=== PATIENT | male | born 1970 | race Caucasian/White ===

== ENCOUNTER → 2016-04-28 | Outpatient (CLI) | payer BC, OTHER ==
--- NOTE | 2016-04-28 16:32 | REP ---
ABDOMINAL AORTIC SONOGRAPHY: HISTORY: History of pulsatile abdominal mass, question abdominal aortic aneurysm. FINDINGS: Abdominal aorta is 2.5 x 2.3 cm in transverse x AP dimension respectively at the diaphragmatic hiatus. This tapers distally without aneurysm with distal aortic dimensions of 1.7 AP x 2.0 cm transverse. The right and left common iliac arteries are normal measuring 1.2 cm in AP dimension on each side. No periaortic disease is seen. IMPRESSION: No evidence of abdominal aortic aneurysm seen. Signed by Cristobal Vera MD 04/28/2016 06:01 P
== END ==
LOC: M RAD 07:38
PROVIDERS: ATTEND Family Medicine
DX: Z87.898 Personal history of other specified conditions (principal)

== ENCOUNTER → 2016-06-16 | Outpatient (REF) | payer BC, OTHER ==
[~2016-06-16] MED LIST: LEVO200T4 PO; MECL-86 PO
[2016-06-16 12:55] LABS: MEAN CORPUSCULAR HEMOGLOBIN 30.1 pg (27.0-33.0); MEAN CORPUSCULAR HGB CONC 34.3 g/dl (32.0-36.5); MEAN CORPUSCULAR VOLUME 87.6 fl (80.0-96.0); RED CELL DISTRIBUTION WIDTH 13.3 % (11.5-14.5); WHITE BLOOD COUNT 5.3 K/mm3 (4.0-10.0)
[2016-06-16 13:10] LABS: ALBUMIN 4.1 GM/DL (3.2-5.2); ALBUMIN/GLOBULIN RATIO 1.32 (1.00-1.93); ALKALINE PHOSPHATASE 66 U/L (45-117); ALT/SGPT 33 U/L (12-78); ANION GAP 9 MEQ/L (8-16); AST/SGOT 17 U/L (15-37); BILIRUBIN,TOTAL 0.6 MG/DL (0.2-1.0); BLOOD UREA NITROGEN 19 MG/DL (7-18); CARBON DIOXIDE LEVEL 28 MEQ/L (21-32); CHLORIDE LEVEL 107 MEQ/L (98-107); CHOLESTEROL LEVEL 221 MG/DL (<200); CREATININE FOR GFR 1.16 MG/DL (0.70-1.30); GLOMERULAR FILTRATION RATE > 60.0 (>60); GLUCOSE, FASTING 100 MG/DL (70-105); SODIUM LEVEL 144 MEQ/L (136-145); TOTAL PROTEIN 7.2 GM/DL (6.4-8.2); TRIGLYCERIDES LEVEL 198 MG/DL (<150)
== END ==
LOC: M LABDRWAD 12:14
PROVIDERS: ATTEND Family Medicine
DX: E03.9 Hypothyroidism, unspecified (principal); R53.83 Other fatigue

== ENCOUNTER → 2016-06-23 | Day surgery (SDC) | payer BC, OTHER ==
[~2016-06-23] VITALS: Ht 188 cm; Wt 127.0 kg
[~2016-06-23] MED LIST changes: +ACETAMINOPHEN 325 MG TAB PO PRN; +AcetaZOLAMIDE 500 MG ER CAP PO ONE; +BSS with VANC/TOB/EPI for EYE CASES IR ONE; +CYCLOPENTOLATE 2% OPHTH SOLN OD ONE; +D5W/0.2% SODIUM CHLORIDE 250 ML IV SCH; +HEALON DUET (HEALON 10MG/ML 0.55ML & HEALON ENDOCOAT 30MG/ML 0.85ML) As Ordered ONE; +HEALON DUET (HEALON 10MG/ML 0.55ML & HEALON ENDOCOAT 30MG/ML 0.85ML) XX ONE; +KETOROLAC 0.5% OPHTH SOLN OD ONE; +LIDOCAINE 1% SDV 5 ML VIAL As Ordered ONE; +LIDOCAINE 1% SDV 5 ML VIAL XX ONE; +LIDOCAINE 4% INJ 5 ML AMP OU ONE; +LIDOCAINE W/EPINEPHRINE 1% 20ML VIAL XX ONE; +MIDAZOLAM INJ 2 MG/2 ML VIAL (J2250) As Ordered ONE; +MOXIFLOXACIN IN BSS 0.25MG/0.25ML INTRACAMERAL INJ (OR EYE ONLY)(J2280) As Ordered ONE; +MOXIFLOXACIN IN BSS 0.25MG/0.25ML INTRACAMERAL INJ (OR EYE ONLY)(J2280) ICAM ONE; +OFLOXACIN 0.3 % (OCUFLOX) OPTH SOL 5ML OD ONE; +PHENYLEPHRINE 2.5% OPHTH SOL 2ML OD ONE; +POVIDONE-IODINE 5% OPHTH PREP SOL 30ML As Ordered ONE; +PROPARACAINE 0.5% OPHTH SOL 15ML OD PRN; +TRIAMCINOLONE PRES FR 40 MG/ML 1ML(TRIESENCE)(OR EYE ONLY)(J3300 PER 1MG) As Ordered ONE; +TRIAMCINOLONE PRES FR 40 MG/ML 1ML(TRIESENCE)(OR EYE ONLY)(J3300 PER 1MG) IO ONE; +TRIMETHOBENZAMIDE 300 MG CAP PO PRN; +TROPICAMIDE 1% OPHTH SOLN 2 ML OD ONE; +fentaNYL 100 MCG/2 ML INJECTION (J3010) As Ordered ONE
[2016-06-23 11:20] VITALS: BP 122/84
== END ==
LOC: M SDC 07:44
PROVIDERS: ATTEND Ophthalmology
DX: H26.9 Unspecified cataract (principal); I10 Essential (primary) hypertension; E03.9 Hypothyroidism, unspecified; M19.90 Unspecified osteoarthritis, unspecified site; G47.30 Sleep apnea, unspecified; Z88.0 Allergy status to penicillin; Z79.899 Other long term (current) drug therapy
CPT/HCPCS: 66984; J2250; J2280; J3010; J3300

== ENCOUNTER → 2016-06-30 | Day surgery (SDC) | payer BC, OTHER ==
[~2016-06-30] VITALS: Ht 188 cm; Wt 127.0 kg
[~2016-06-30] MED LIST changes: -CYCLOPENTOLATE 2% OPHTH SOLN OD ONE; +CYCLOPENTOLATE 2% OPHTH SOLN OS ONE; -HEALON DUET (HEALON 10MG/ML 0.55ML & HEALON ENDOCOAT 30MG/ML 0.85ML) XX ONE; -KETOROLAC 0.5% OPHTH SOLN OD ONE; +KETOROLAC 0.5% OPHTH SOLN OS ONE; -LIDOCAINE 1% SDV 5 ML VIAL XX ONE; +LIDOCAINE 4% INJ 5 ML AMP OS ONE; -LIDOCAINE W/EPINEPHRINE 1% 20ML VIAL XX ONE; -MOXIFLOXACIN IN BSS 0.25MG/0.25ML INTRACAMERAL INJ (OR EYE ONLY)(J2280) ICAM ONE; -OFLOXACIN 0.3 % (OCUFLOX) OPTH SOL 5ML OD ONE; +OFLOXACIN 0.3 % (OCUFLOX) OPTH SOL 5ML OS ONE; -PHENYLEPHRINE 2.5% OPHTH SOL 2ML OD ONE; +PHENYLEPHRINE 2.5% OPHTH SOL 2ML OS ONE; -PROPARACAINE 0.5% OPHTH SOL 15ML OD PRN; +PROPARACAINE 0.5% OPHTH SOL 15ML OS PRN; -TRIAMCINOLONE PRES FR 40 MG/ML 1ML(TRIESENCE)(OR EYE ONLY)(J3300 PER 1MG) IO ONE; -TROPICAMIDE 1% OPHTH SOLN 2 ML OD ONE; +TROPICAMIDE 1% OPHTH SOLN 2 ML OS ONE
[2016-06-30 12:05] VITALS: BP 137/86
== END ==
LOC: M SDC 09:01
PROVIDERS: ATTEND Ophthalmology
DX: H26.9 Unspecified cataract (principal); E03.9 Hypothyroidism, unspecified; M19.90 Unspecified osteoarthritis, unspecified site; G47.30 Sleep apnea, unspecified; E66.9 Obesity, unspecified; Z88.0 Allergy status to penicillin; Z79.899 Other long term (current) drug therapy
CPT/HCPCS: 66984; J2250; J2280; J3010; J3300

== ENCOUNTER → 2017-05-31 | Outpatient (CLI) | payer BC, OTHER ==
[2017-05-31 09:10] LABS: HEMATOCRIT 47.1 % (42.0-52.0); HEMOGLOBIN 15.8 g/dl (14.0-18.0); MEAN CORPUSCULAR HGB CONC 33.5 g/dl (32.0-36.5); MEAN CORPUSCULAR VOLUME 86.4 fl (80.0-96.0); PLATELET COUNT, AUTOMATED 178 10^3/uL (150-450); RED BLOOD COUNT 5.45 10^6/uL (4.30-6.10); WHITE BLOOD COUNT 5.8 10^3/uL (4.0-10.0)
[2017-05-31 09:46] LABS: ALBUMIN/GLOBULIN RATIO 1.14 (1.00-1.93); ALKALINE PHOSPHATASE 66 U/L (45-117); ALT/SGPT 33 U/L (12-78); ANION GAP 5 MEQ/L (8-16); AST/SGOT 15 U/L (7-37); BILIRUBIN,TOTAL 0.4 MG/DL (0.2-1.0); BLOOD UREA NITROGEN 15 MG/DL (7-18); CALCIUM LEVEL 9.1 MG/DL (8.5-10.1); CARBON DIOXIDE LEVEL 31 MEQ/L (21-32); CHLORIDE LEVEL 104 MEQ/L (98-107); CHOLESTEROL LEVEL 219 MG/DL (<200); CREATININE FOR GFR 1.12 MG/DL (0.70-1.30); GLOMERULAR FILTRATION RATE > 60.0 (>60); GLUCOSE, FASTING 94 MG/DL (70-100); HDL CHOLESTEROL 46 MG/DL (>40); NON-HDL-C 173 MG/DL; POTASSIUM SERUM 4.1 MEQ/L (3.5-5.1); PROSTATIC SPECIFIC AG MONITOR 0.74 NG/ML (< 4.0); SODIUM LEVEL 140 MEQ/L (136-145); TOTAL PROTEIN 7.5 GM/DL (6.4-8.2); TRIGLYCERIDES LEVEL 305 MG/DL (<150)
[2017-05-31 09:52] LABS: ESTIMATED AVERAGE GLUCOSE 123 MG/DL (60-110); HEMOGLOBIN A1c 5.9 %
[2017-05-31 10:03] LABS: TOTAL 25(OH) VITAMIN D 18.6 NG/ML (30.0-100.0)
[2017-05-31 10:04] LABS: TESTOSTERONE 238 NG/DL (241-827)
== END ==
LOC: M LAB 08:41
DX: E03.9 Hypothyroidism, unspecified (principal)
CPT/HCPCS: 71046

== ENCOUNTER → 2018-01-18 | Outpatient (REF) | payer OTHER ==
[2018-01-18 12:26] LABS: HEMATOCRIT 48.3 % (42.0-52.0); HEMOGLOBIN 16.3 g/dl (13.5-17.5); MEAN CORPUSCULAR HEMOGLOBIN 29.3 pg (27.0-33.0); MEAN CORPUSCULAR HGB CONC 33.7 g/dl (32.0-36.5); MEAN CORPUSCULAR VOLUME 86.9 fl (80.0-96.0); PLATELET COUNT, AUTOMATED 182 10^3/uL (150-450); RED BLOOD COUNT 5.56 10^6/uL (4.30-6.10); RED CELL DISTRIBUTION WIDTH 13.5 % (11.5-14.5); WHITE BLOOD COUNT 5.1 10^3/uL (4.0-10.0)
[2018-01-18 12:53] LABS: ERYTHROCYTE SEDIMENTATION RATE 3 mm/hr (0-15)
[2018-01-18 15:18] LABS: ALBUMIN 4.4 GM/DL (3.2-5.2); ALBUMIN/GLOBULIN RATIO 1.42 (1.00-1.93); ALKALINE PHOSPHATASE 62 U/L (45-117); ALT/SGPT 40 U/L (12-78); ANION GAP 11 MEQ/L (8-16); AST/SGOT 21 U/L (7-37); BILIRUBIN,TOTAL 0.6 MG/DL (0.2-1.0); BLOOD UREA NITROGEN 16 MG/DL (7-18); CALCIUM LEVEL 9.4 MG/DL (8.5-10.1); CARBON DIOXIDE LEVEL 26 MEQ/L (21-32); CHLORIDE LEVEL 104 MEQ/L (98-107); CHOLESTEROL LEVEL 237 MG/DL (<200); CHOLESTEROL RISK RATIO 5.266 (<5); CREATININE FOR GFR 1.15 MG/DL (0.70-1.30); GLOMERULAR FILTRATION RATE > 60.0 (>60); GLUCOSE, FASTING 93 MG/DL (70-100); HDL CHOLESTEROL 45 MG/DL (>40); LDL CHOLESTEROL 165 MG/DL (<100); NON-HDL-C 192 MG/DL; POTASSIUM SERUM 4.2 MEQ/L (3.5-5.1); SODIUM LEVEL 141 MEQ/L (136-145); TOTAL PROTEIN 7.5 GM/DL (6.4-8.2); TRIGLYCERIDES LEVEL 135 MG/DL (<150)
[2018-01-18 15:36] LABS: ESTIMATED AVERAGE GLUCOSE 114 MG/DL (60-110); HEMOGLOBIN A1c 5.6 %
[2018-01-18 17:43] LABS: TESTOSTERONE 314 NG/DL (241-827); TOTAL 25(OH) VITAMIN D 17.2 NG/ML (30.0-100.0)
[2018-01-18 18:23] LABS: HIV 1&2 SCREEN CENTAUR NEGATIVE (NEGATIVE)
== END ==
LOC: M LABDRWAD 12:05
DX: E03.9 Hypothyroidism, unspecified (principal); R53.83 Other fatigue

== ENCOUNTER → 2018-01-22 | Outpatient (CLI) | payer BC, OTHER | LOC: M EKG 13:07 | DX: I49.8 Other specified cardiac arrhythmias (principal) | CPT/HCPCS: 93005 ==

== ENCOUNTER 2018-03-18 10:37 | Emergency (ER) | payer OTHER, BC | END 2018-03-18 11:50 | disposition home or self-care (01) | LOC: M ED 10:37 | DX: M25.552 Pain in left hip (principal); E03.9 Hypothyroidism, unspecified; G47.33 Obstructive sleep apnea (adult) (pediatric); Z79.899 Other long term (current) drug therapy; Z88.0 Allergy status to penicillin | CPT/HCPCS: 73502 ==

== ENCOUNTER → 2018-11-02 | Outpatient (CLI) | payer BC, OTHER ==
[~2018-11-02] MED LIST changes: -ACETAMINOPHEN 325 MG TAB PO PRN; -AcetaZOLAMIDE 500 MG ER CAP PO ONE; -BSS with VANC/TOB/EPI for EYE CASES IR ONE; -CYCLOPENTOLATE 2% OPHTH SOLN OS ONE; -D5W/0.2% SODIUM CHLORIDE 250 ML IV SCH; -HEALON DUET (HEALON 10MG/ML 0.55ML & HEALON ENDOCOAT 30MG/ML 0.85ML) As Ordered ONE; +HYDR-3715 PO; -KETOROLAC 0.5% OPHTH SOLN OS ONE; +LEVO150T7; -LIDOCAINE 1% SDV 5 ML VIAL As Ordered ONE; -LIDOCAINE 4% INJ 5 ML AMP OS ONE; -LIDOCAINE 4% INJ 5 ML AMP OU ONE; -MIDAZOLAM INJ 2 MG/2 ML VIAL (J2250) As Ordered ONE; -MOXIFLOXACIN IN BSS 0.25MG/0.25ML INTRACAMERAL INJ (OR EYE ONLY)(J2280) As Ordered ONE; -OFLOXACIN 0.3 % (OCUFLOX) OPTH SOL 5ML OS ONE; -PHENYLEPHRINE 2.5% OPHTH SOL 2ML OS ONE; -POVIDONE-IODINE 5% OPHTH PREP SOL 30ML As Ordered ONE; -PROPARACAINE 0.5% OPHTH SOL 15ML OS PRN; -TRIAMCINOLONE PRES FR 40 MG/ML 1ML(TRIESENCE)(OR EYE ONLY)(J3300 PER 1MG) As Ordered ONE; -TRIMETHOBENZAMIDE 300 MG CAP PO PRN; -TROPICAMIDE 1% OPHTH SOLN 2 ML OS ONE; -fentaNYL 100 MCG/2 ML INJECTION (J3010) As Ordered ONE
[2018-11-02 09:12] LABS: HEMATOCRIT 44.7 % (42.0-52.0); HEMOGLOBIN 15.1 g/dl (13.5-17.5); MEAN CORPUSCULAR HEMOGLOBIN 30.8 pg (27.0-33.0); MEAN CORPUSCULAR HGB CONC 33.8 g/dl (32.0-36.5); PLATELET COUNT, AUTOMATED 178 10^3/uL (150-450); RED BLOOD COUNT 4.91 10^6/uL (4.30-6.10); WHITE BLOOD COUNT 5.5 10^3/uL (4.0-10.0)
[2018-11-02 09:39] LABS: ALT/SGPT 26 U/L (12-78); BILIRUBIN,TOTAL 0.5 MG/DL (0.2-1.0); BLOOD UREA NITROGEN 21 MG/DL (7-18); CALCIUM LEVEL 8.9 MG/DL (8.5-10.1); CARBON DIOXIDE LEVEL 29 MEQ/L (21-32); CHLORIDE LEVEL 108 MEQ/L (98-107); CHOLESTEROL LEVEL 198 MG/DL (<200); CREATININE FOR GFR 1.22 MG/DL (0.70-1.30); GLOMERULAR FILTRATION RATE > 60.0 (>60); GLUCOSE, FASTING 98 MG/DL (70-100); HDL CHOLESTEROL 50 MG/DL (>40); LDL CHOLESTEROL 126 MG/DL (<100); NON-HDL-C 148 MG/DL; POTASSIUM SERUM 4.3 MEQ/L (3.5-5.1); SODIUM LEVEL 142 MEQ/L (136-145); TOTAL PROTEIN 7.2 GM/DL (6.4-8.2); TRIGLYCERIDES LEVEL 112 MG/DL (<150)
[2018-11-02 10:00] LABS: TESTOSTERONE 357 NG/DL (241-827); TOTAL 25(OH) VITAMIN D 22.4 NG/ML (30.0-100.0)
== END ==
LOC: M LAB 08:42
PROVIDERS: ATTEND Family Medicine
DX: I10 Essential (primary) hypertension (principal); R53.83 Other fatigue; N40.0 Benign prostatic hyperplasia without lower urinary tract symptoms; E03.9 Hypothyroidism, unspecified

== ENCOUNTER → 2019-04-13 | Outpatient (REF) | payer OTHER ==
[2019-04-13 13:10] LABS: HEMATOCRIT 48.9 % (42.0-52.0); HEMOGLOBIN 15.7 g/dl (13.5-17.5); MEAN CORPUSCULAR HEMOGLOBIN 29.2 pg (27.0-33.0); MEAN CORPUSCULAR HGB CONC 32.1 g/dl (32.0-36.5); MEAN CORPUSCULAR VOLUME 91.1 fl (80.0-96.0); PLATELET COUNT, AUTOMATED 219 10^3/uL (150-450); RED BLOOD COUNT 5.37 10^6/uL (4.30-6.10)
[2019-04-13 13:30] LABS: HEMOGLOBIN A1c 5.4 %
[2019-04-13 14:03] LABS: ALT/SGPT 30 U/L (12-78); BILIRUBIN,TOTAL 0.7 MG/DL (0.2-1.0); BLOOD UREA NITROGEN 18 MG/DL (7-18); CALCIUM LEVEL 8.8 MG/DL (8.5-10.1); CARBON DIOXIDE LEVEL 29 MEQ/L (21-32); CHLORIDE LEVEL 106 MEQ/L (98-107); CHOLESTEROL LEVEL 217 MG/DL (<200); CHOLESTEROL RISK RATIO 4.094 (<5); CREATININE FOR GFR 1.23 MG/DL (0.70-1.30); GLOMERULAR FILTRATION RATE > 60.0 (>60); GLUCOSE, FASTING 94 MG/DL (70-100); HDL CHOLESTEROL 53 MG/DL (>40); LDL CHOLESTEROL 134 MG/DL (<100); NON-HDL-C 164 MG/DL; POTASSIUM SERUM 4.3 MEQ/L (3.5-5.1); PROSTATIC SPECIFIC AG MONITOR 0.88 NG/ML (< 4.00); SODIUM LEVEL 142 MEQ/L (136-145); TESTOSTERONE 362 NG/DL (241-827); THYROXINE (T4) 11.6 UG/DL (4.5-12.0); TOTAL PROTEIN 7.5 GM/DL (6.4-8.2); TOTAL T3 110.7 NG/DL (60.0-181.0); TRIGLYCERIDES LEVEL 150 MG/DL (<150)
[2019-04-13 14:12] LABS: HEPATITIS B SURFACE ANTIGEN NEGATIVE (NEGATIVE)
[2019-04-13 14:39] LABS: HEPATITIS C VIRUS ABY INDEX 0.3 INDEX (<0.8)
[2019-04-13 14:40] LABS: HEPATITIS B CORE ANTIBODY IGM NEGATIVE (NEGATIVE)
[2019-04-13 14:41] LABS: HEPATITIS A ANTIBODY IGM NEGATIVE (NEGATIVE)
== END ==
LOC: M LABDRWAD 12:32
PROVIDERS: ATTEND Family Medicine
DX: I10 Essential (primary) hypertension (principal); R53.83 Other fatigue; E03.9 Hypothyroidism, unspecified

== ENCOUNTER → 2019-11-12 | Outpatient (CLI) | payer BC, OTHER ==
[2019-11-12 11:02] LABS: HEMATOCRIT 44.3 % (42.0-52.0); HEMOGLOBIN 14.6 g/dl (13.5-17.5); MEAN CORPUSCULAR HEMOGLOBIN 29.4 pg (27.0-33.0); MEAN CORPUSCULAR VOLUME 89.1 fl (80.0-96.0); PLATELET COUNT, AUTOMATED 200 10^3/uL (150-450); RED BLOOD COUNT 4.97 10^6/uL (4.30-6.10); WHITE BLOOD COUNT 5.7 10^3/uL (4.0-10.0)
[2019-11-12 11:12] LABS: HEMOGLOBIN A1c 5.6 %
[2019-11-12 11:35] LABS: ALT/SGPT 30 U/L (12-78); BILIRUBIN,TOTAL 0.6 MG/DL (0.2-1.0); BLOOD UREA NITROGEN 17 MG/DL (7-18); CALCIUM LEVEL 8.7 MG/DL (8.5-10.1); CARBON DIOXIDE LEVEL 28 MEQ/L (21-32); CHLORIDE LEVEL 106 MEQ/L (98-107); CHOLESTEROL LEVEL 232 MG/DL (<200); CREATININE FOR GFR 1.17 MG/DL (0.70-1.30); GLOMERULAR FILTRATION RATE > 60.0 (>60); GLUCOSE, FASTING 93 MG/DL (70-100); HDL CHOLESTEROL 50 MG/DL (>40); LDL CHOLESTEROL 159 MG/DL (<100); NON-HDL-C 182 MG/DL; POTASSIUM SERUM 4.6 MEQ/L (3.5-5.1); PROSTATIC SPECIFIC AG MONITOR 0.96 NG/ML (< 4.00); SODIUM LEVEL 140 MEQ/L (136-145); TOTAL PROTEIN 7.3 GM/DL (6.4-8.2); TRIGLYCERIDES LEVEL 113 MG/DL (<150)
[2019-11-12 11:36] LABS: TESTOSTERONE 409 NG/DL (241-827)
== END ==
LOC: M LAB 10:05
PROVIDERS: ATTEND Family Medicine
DX: R53.83 Other fatigue (principal); I10 Essential (primary) hypertension; E03.9 Hypothyroidism, unspecified

== ENCOUNTER → 2020-01-25 | Outpatient (CLI) | payer BC, OTHER ==
[2020-01-25 14:46] LABS: HEMATOCRIT 41.8 % (42.0-52.0); MEAN CORPUSCULAR HEMOGLOBIN 29.5 pg (27.0-33.0); MEAN CORPUSCULAR HGB CONC 33.5 g/dl (32.0-36.5); PLATELET COUNT, AUTOMATED 198 10^3/uL (150-450); RED BLOOD COUNT 4.75 10^6/uL (4.30-6.10); WHITE BLOOD COUNT 6.1 10^3/uL (4.0-10.0)
[2020-01-25 14:58] LABS: INR 0.97; PROTHROMBIN TIME 13.1 SECONDS (12.5-14.3)
[2020-01-25 15:21] LABS: ALBUMIN 4.2 GM/DL (3.2-5.2); BLOOD UREA NITROGEN 16 MG/DL (7-18); CALCIUM LEVEL 9.4 MG/DL (8.5-10.1); CARBON DIOXIDE LEVEL 27 MEQ/L (21-32); CHLORIDE LEVEL 105 MEQ/L (98-107); GLOMERULAR FILTRATION RATE > 60.0 (>60); GLUCOSE, FASTING 91 MG/DL (70-100); PHOSPHORUS LEVEL 3.2 MG/DL (2.5-4.9); POTASSIUM SERUM 4.2 MEQ/L (3.5-5.1); SODIUM LEVEL 138 MEQ/L (136-145)
== END ==
LOC: M LAB 14:01
PROVIDERS: ATTEND Internal Medicine Cardiovascular Disease
DX: R07.2 Precordial pain (principal); R94.31 Abnormal electrocardiogram [ECG] [EKG]; I11.9 Hypertensive heart disease without heart failure

== ENCOUNTER → 2020-01-26 | Outpatient (CLI) | payer BC, OTHER | LOC: M LABSMTC 10:52 | PROVIDERS: ATTEND Internal Medicine Cardiovascular Disease | DX: Z01.812 Encounter for preprocedural laboratory examination (principal); Z20.828 Contact with and (suspected) exposure to other viral communicable diseases | CPT/HCPCS: C9803; U0002 ==

== ENCOUNTER → 2020-02-08 | Outpatient (CLI) | payer BC, OTHER ==
[2020-02-08 10:47] LABS: ALBUMIN 4.1 GM/DL (3.2-5.2); BLOOD UREA NITROGEN 18 MG/DL (7-18); CALCIUM LEVEL 9.4 MG/DL (8.5-10.1); CARBON DIOXIDE LEVEL 26 MEQ/L (21-32); CHLORIDE LEVEL 107 MEQ/L (98-107); GLOMERULAR FILTRATION RATE > 60.0 (>60); GLUCOSE, FASTING 100 MG/DL (70-100); MAGNESIUM LEVEL 2.2 MG/DL (1.8-2.4); NT-PRO BNP 27 PG/ML (<125); PHOSPHORUS LEVEL 3.1 MG/DL (2.5-4.9); SODIUM LEVEL 139 MEQ/L (136-145)
== END ==
LOC: M PLALAB 08:39
PROVIDERS: ATTEND Internal Medicine Cardiovascular Disease
DX: I11.9 Hypertensive heart disease without heart failure (principal)

== ENCOUNTER → 2020-06-20 | Outpatient (CLI) | payer BC, OTHER ==
[~2020-06-20] MED LIST changes: +ATOR80TA59; +CHLO125TA; +CITA20TA7; +OMEP-221; +SPIR-10
== END ==
LOC: M LABSMTC 10:15
PROVIDERS: ATTEND Anesthesiology
DX: Z01.812 Encounter for preprocedural laboratory examination (principal); Z20.822 Contact with and (suspected) exposure to COVID-19

== ENCOUNTER 2020-06-25 08:43 | Day surgery (SDC) | payer BC, OTHER ==
[~2020-06-25] VITALS: Ht 188 cm; Wt 112.9 kg
[~2020-06-25 08:43] MED LIST changes: +NS 1,000 ML IV ONE
--- NOTE | 2020-06-25 11:16 | ROOR ---
Patient Name: Ozzy Mcgrath Procedure Date: 06/25/2020 10:37 AM Date of : 1970 Age: 49 Room: [facility] Gender: Male Note Status: Finalized Procedure: Total Colonoscopy to Cecum + Hot Snare Polypectomy + Hemoclips Indications: Screening for colorectal malignant neoplasm Providers: Magdiel Magallon MD Referring MD: ARABELLA MARTEL MD Requesting Provider: Medicines: Monitored Anesthesia Care Complications: No immediate complications. Procedure: Pre-Anesthesia Assessment: - The heart rate, respiratory rate, oxygen saturations, blood pressure, adequacy of pulmonary ventilation, and response to care were monitored throughout the procedure. The Colonoscope was introduced through the anus and advanced to the cecum, identified by appendiceal orifice and ileocecal valve. The colonoscopy was performed without difficulty. The patient tolerated the procedure well. The quality of the bowel preparation was excellent. Findings: The perianal and digital rectal examinations were normal. Non-bleeding external and internal hemorrhoids were found during retroflexion. The hemorrhoids were medium-sized and Grade II (internal hemorrhoids that prolapse but reduce spontaneously). A medium polyp was found in the splenic flexure. The polyp was semi-pedunculated. The polyp was removed with a hot snare. Resection and retrieval were complete. To prevent bleeding after the polypectomy, one hemostatic clip was successfully placed. There was no bleeding at the end of the procedure. Three sessile polyps were found in the transverse colon. The polyps were medium in size. These polyps were removed with a hot snare. Resection and retrieval were complete. To prevent bleeding after the polypectomy, two hemostatic clips were successfully placed (MR conditional). There was no bleeding at the end of the procedure. The exam was otherwise without abnormality on direct and retroflexion views. Impression: - Non-bleeding external and internal hemorrhoids. - One medium polyp at the splenic flexure, removed with a hot snare. Resected and retrieved. Clip was placed. - Three medium polyps in the transverse colon, removed with a hot snare. Resected and retrieved. Clips (MR conditional) were placed. - The examination was otherwise normal on direct and retroflexion views. - The exam was otherwise normal to the cecum. Recommendation: - Patient has a contact number available for emergencies. The signs and symptoms of potential delayed complications were discussed with the patient. Return to normal activities tomorrow. Written discharge instructions were provided to the patient. - High fiber diet. - Discharge patient to home. - Continue present medications. - Await pathology results. - Telephone GI clinic for pathology results in 1 week. - Repeat colonoscopy for surveillance based on pathology results. - Return to referring physician. - The findings and recommendations were discussed with the patient. Procedure Code(s): --- Professional --- 21831, Colonoscopy, flexible; with removal of tumor(s), polyp(s), or other lesion(s) by snare technique Diagnosis Code(s): --- Professional --- K63.5, Polyp of colon Z12.11, Encounter for screening for malignant neoplasm of colon K64.1, Second degree hemorrhoids CPT copyright 2019 [employer]. All rights reserved. The codes documented in this report are preliminary and upon nuclear physics professor review may be revised to meet current compliance requirements. Magdiel Magallon MD Magdiel Magallon MD 06/25/2020 11:16:13 AM Electronically signed by Magdiel Magallon MD Number of Addenda: 0 Note Initiated On: 06/25/2020 10:37 AM Estimated Blood Loss: Estimated blood loss: none.
[2020-06-25 11:38] VITALS: BP 117/68
[2020-06-25] MEDS ORDERED: propofoL 500 MG/50 ML VIAL As Ordered ONE (11:44)
[2020-06-25] MEDS ORDERED: LIDOCAINE 2% 100MG/5ML SDV (FOR ANES.) As Ordered ONE (11:44)
== END 2020-06-25 11:40 | disposition home or self-care (01) ==
LOC: M OPP 08:43
PROVIDERS: ATTEND Internal Medicine Gastroenterology
DX: Z12.11 Encounter for screening for malignant neoplasm of colon (principal); D12.3 Benign neoplasm of transverse colon; K64.1 Second degree hemorrhoids; G47.30 Sleep apnea, unspecified; E03.9 Hypothyroidism, unspecified; K21.9 Gastro-esophageal reflux disease without esophagitis; Z79.899 Other long term (current) drug therapy; Z88.0 Allergy status to penicillin

== ENCOUNTER → 2020-08-26 | Outpatient (CLI) | payer BC, OTHER ==
[~2020-08-26] MED LIST changes: -NS 1,000 ML IV ONE
[2020-08-26 09:53] LABS: HEMATOCRIT 44.5 % (42.0-52.0); HEMOGLOBIN 14.6 g/dl (13.5-17.5); MEAN CORPUSCULAR HGB CONC 32.8 g/dl (32.0-36.5); MEAN CORPUSCULAR VOLUME 91.4 fl (80.0-96.0); PLATELET COUNT, AUTOMATED 206 10^3/uL (150-450); RED BLOOD COUNT 4.87 10^6/uL (4.30-6.10); WHITE BLOOD COUNT 5.1 10^3/uL (4.0-10.0)
[2020-08-26 10:08] LABS: HEMOGLOBIN A1c 5.6 %
[2020-08-26 10:34] LABS: ALBUMIN 3.9 GM/DL (3.2-5.2); ALT/SGPT 36 U/L (12-78); BILIRUBIN,TOTAL 0.7 MG/DL (0.2-1.0); BLOOD UREA NITROGEN 13 MG/DL (7-18); CALCIUM LEVEL 9.5 MG/DL (8.5-10.1); CARBON DIOXIDE LEVEL 31 MEQ/L (21-32); CHLORIDE LEVEL 107 MEQ/L (98-107); CHOLESTEROL LEVEL 165 MG/DL (<200); CHOLESTEROL RISK RATIO 3.586 (<5); CREATININE FOR GFR 1.13 MG/DL (0.70-1.30); GLOMERULAR FILTRATION RATE > 60.0 (>60); GLUCOSE, FASTING 94 MG/DL (70-100); HDL CHOLESTEROL 46 MG/DL (>40); LDL CHOLESTEROL 93 MG/DL (<100); NON-HDL-C 119 MG/DL; POTASSIUM SERUM 4.3 MEQ/L (3.5-5.1); PROSTATIC SPECIFIC AG MONITOR 0.69 NG/ML (< 4.00); SODIUM LEVEL 142 MEQ/L (136-145); TRIGLYCERIDES LEVEL 131 MG/DL (<150)
[2020-08-26 11:01] LABS: TESTOSTERONE 466 NG/DL (241-827)
== END ==
LOC: M LAB 08:23
PROVIDERS: ATTEND Family Medicine
DX: I10 Essential (primary) hypertension (principal)

== ENCOUNTER → 2020-10-06 | Outpatient (CLI) | payer BC, OTHER | LOC: M WUC 11:43 | PROVIDERS: ATTEND Internal Medicine Cardiovascular Disease | DX: I11.9 Hypertensive heart disease without heart failure (principal) ==

== ENCOUNTER 2021-02-22 20:48 | Emergency (ER) | payer BC, OTHER ==
[~2021-02-22] VITALS: Ht 188 cm; Wt 136.4 kg
--- OUTSIDE RECORDS SUMMARY | 2021-02-22 20:56 | CCD ---
Author Author [facility] Organization [facility] Address Unknown Phone Unavailable Care Team Providers Care Paper Stacker Name Role Phone Lauren, L Sheryl FLOW SPECIALIST Unavailable Unavailable Lauren, L Sheryl FLOW SPECIALIST Unavailable Unavailable Lauren, L Sheryl FLOW SPECIALIST Unavailable Unavailable Lauren, L Sheryl FLOW SPECIALIST Unavailable Unavailable Lauren, L Sheryl FLOW SPECIALIST Unavailable Unavailable Lauren, L Sheryl FLOW SPECIALIST Unavailable Unavailable Lauren, L Sheryl FLOW SPECIALIST Unavailable Unavailable Lauren, L Sheryl FLOW SPECIALIST Unavailable Unavailable Lauren, L Sheryl FLOW SPECIALIST Unavailable Unavailable Lauren, L Sheryl FLOW SPECIALIST Unavailable Unavailable Lauren, L Sheryl FLOW SPECIALIST Unavailable Unavailable Lauren, L Sheryl FLOW SPECIALIST Unavailable Unavailable Lauren, L Sheryl FLOW SPECIALIST Unavailable Unavailable Lauren, L Sheryl FLOW SPECIALIST Unavailable Unavailable Lauren, L Sheryl FLOW SPECIALIST Unavailable Unavailable Lauren, L Sheryl FLOW SPECIALIST Unavailable Unavailable Lauren, L Sheryl FLOW SPECIALIST Unavailable Unavailable Lauren, L Sheryl FLOW SPECIALIST Unavailable Unavailable Lauren, L Sheryl FLOW SPECIALIST Unavailable Unavailable Lauren, L Sheryl FLOW SPECIALIST Unavailable Unavailable Lauren, L Sheryl FLOW SPECIALIST Unavailable Unavailable Lauren, L Sheryl FLOW SPECIALIST Unavailable Unavailable Lauren, L Sheryl FLOW SPECIALIST Unavailable Unavailable Lauren, L Sheryl FLOW SPECIALIST Unavailable Unavailable Lauren, L Sheryl FLOW SPECIALIST Unavailable Unavailable Tavo Magallon MD Unavailable Unavailable Tavo Magallon MD Unavailable Unavailable Tavo Magallon MD Unavailable Unavailable Tavo Magallon MD Unavailable Unavailable Tavo Magallon MD Unavailable Unavailable Tavo Magallon MD Unavailable Unavailable Tavo Magallon MD Unavailable Unavailable NaunTavo MD Unavailable Unavailable NaunTavo MD Unavailable Unavailable NaunTavo MD Unavailable Unavailable NaunTavo MD Unavailable Unavailable NaunTavo MD Unavailable Unavailable NaunTavo MD Unavailable Unavailable NaunTavo MD Unavailable Unavailable NaunTavo MD Unavailable Unavailable NaunTavo MD Unavailable Unavailable Naun S Magdiel MONTENEGRO Unavailable Unavailable NaunTavo MD Unavailable Unavailable NaunTavo MD Unavailable Unavailable NaunTavo MD Unavailable Unavailable NaunTavo MD Unavailable Unavailable NaunTavo MD Unavailable Unavailable NaunTavo ron MD Unavailable Unavailable Tavo Magallon MD Unavailable Unavailable Tavo Magallon MD Unavailable Unavailable Tavo Magallon MD Unavailable Unavailable Tavo Magallon MD Unavailable Unavailable Tavo Magallon MD Unavailable Unavailable Tavo Magallon MD Unavailable Unavailable Tavo Magallon MD Unavailable Unavailable Tavo Magallon MD Unavailable Unavailable Tavo Magallon MD Unavailable Unavailable Tavo Magallon MD Unavailable Unavailable Tavo Magallon MD Unavailable Unavailable Tavo Magallon MD Unavailable Unavailable Tavo Magallon MD Unavailable Unavailable Tavo Magallon MD Unavailable Unavailable Tavo Magallon MD Unavailable Unavailable Tavo Magallon MD Unavailable Unavailable Tavo Magallon MD Unavailable Unavailable Tavo Magallon MD Unavailable Unavailable Tavo Magallon MD Unavailable Unavailable Tavo Magallon MD Unavailable Unavailable Tavo Magallon MD Unavailable Unavailable Tavo Magallon MD Unavailable Unavailable Tavo Magallon MD Unavailable Unavailable Tavo Magallon MD Unavailable Unavailable Tavo Magallon MD Unavailable Unavailable Tavo Magallon MD Unavailable Unavailable Tavo Magallon MD Unavailable Unavailable Kemar ROBERSON MD Unavailable Unavailable Kemar ROBERSON MD Unavailable Unavailable Kemar ROBERSON MD Unavailable Unavailable Kemar ROBERSON MD Unavailable Unavailable Kemar ROBERSON MD Unavailable Unavailable Kemar ROBERSON MD Unavailable Unavailable Kemar ROBERSON MD Unavailable Unavailable Kemar ROBERSON MD Unavailable Unavailable Kemar ROBERSON MD Unavailable Unavailable Kemar ROBERSON MD Unavailable Unavailable Kemar ROBERSON MD Unavailable Unavailable Kemar ROBERSON MD Unavailable Unavailable Kemar ROBERSON MD Unavailable Unavailable Kemar ROBERSON MD Unavailable Unavailable ROBERSON E ALLYN MONTENEGRO Unavailable Unavailable ROBERSON E ALLYN MONTENEGRO Unavailable Unavailable ROBERSON E ALLYN MONTENEGRO Unavailable Unavailable ROBERSON E ALLYN MONTENEGRO Unavailable Unavailable ROBERSON E ALLYN MONTENEGRO Unavailable Unavailable ROBERSON E ALLYN MONTENEGRO Unavailable Unavailable ROBERSON, E ALLYN MONTENEGRO Unavailable Unavailable ROBERSON E ALLYN MONTENEGRO Unavailable Unavailable ROBERSON, E ALLYN MONTENEGRO Unavailable Unavailable ROBERSON, E ALLYN MONTENEGRO Unavailable Unavailable ROBERSON E ALLYN MONTENEGRO Unavailable Unavailable ROBERSON E ALLYN MONTENEGRO Unavailable Unavailable ROBERSON E ALLYN MONTENEGRO Unavailable Unavailable ROBERSON E ALLYN MONTENEGRO Unavailable Unavailable ROBERSON E ALLYN MONTENEGRO Unavailable Unavailable ROBERSON E ALLYN MONTENEGRO Unavailable Unavailable ROBERSON E ALLYN MONTENEGRO Unavailable Unavailable ROBERSON, E ALLYN MONTENEGRO Unavailable Unavailable ROBERSON, E ALLYN MONTENEGRO Unavailable Unavailable ROBERSON, E ALLYN MONTENEGRO Unavailable Unavailable ROBERSON, E ALLYN MONTENEGRO Unavailable Unavailable ROBERSON, E ALLYN MONTENEGRO Unavailable Unavailable ROBERSON, E ALLYN MONTENEGRO Unavailable Unavailable ROBERSON, E ALLYN MONTENEGRO Unavailable Unavailable ROBERSON, E ALLYN MONTENEGRO Unavailable Unavailable ROBERSON E ALLYN MONTENEGRO Unavailable Unavailable ROBERSON E ALLYN MONTENEGRO Unavailable Unavailable ROBERSON, E ALLYN MONTENEGRO Unavailable Unavailable ROBERSON, E ALLYN MONTENEGRO Unavailable Unavailable ROBERSON E ALLYN MONTENEGRO Unavailable Unavailable ROBERSON E ALLYN MONTENEGRO Unavailable Unavailable ROBERSON E ALLYN MONTENEGRO Unavailable Unavailable ROBERSON E ALLYN MONTENEGRO Unavailable Unavailable ROBERSON E ALLYN MONTENEGRO Unavailable Unavailable ROBERSON E ALLYN MONTENEGRO Unavailable Unavailable ROBERSON, E ALLYN MONTENEGRO Unavailable Unavailable ROBERSON, E ALLYN MONTENEGRO Unavailable Unavailable ROBERSON, E ALLYN MONTENEGRO Unavailable Unavailable ROBERSON, E ALLYN MONTENEGRO Unavailable Unavailable ROBERSON E ALLYN MONTENEGRO Unavailable Unavailable Tavo ELAM MD Unavailable Unavailable Tavo ELAM MD Unavailable Unavailable Tavo ELAM MD Unavailable Unavailable Tavo ELAM MD Unavailable Unavailable Tavo ELAM MD Unavailable Unavailable Tavo ELAM MD Unavailable Unavailable Tavo ELAM MD Unavailable Unavailable Tavo ELAM MD Unavailable Unavailable Tavo ELAM MD Unavailable Unavailable Tavo ELAM MD Unavailable Unavailable Tavo ELAM MD Unavailable Unavailable Tavo ELAM MD Unavailable Unavailable Tavo ELAM MD Unavailable Unavailable Tavo ELAM MD Unavailable Unavailable Tavo ELAM MD Unavailable Unavailable SHANELL, S AYMAN MD Unavailable Unavailable SHANELL, S AYMAN MD Unavailable Unavailable SHANELL, S AYMAN MD Unavailable Unavailable SHANELL, S AYMAN MD Unavailable Unavailable SHANELL, S AYMAN MD Unavailable Unavailable SHANELL, S AYMAN MD Unavailable Unavailable SHANELL, S AYMAN MD Unavailable Unavailable SHANELL, S AYMAN MD Unavailable Unavailable SHANELL, S AYMAN MD Unavailable Unavailable SHANELL, S AYMAN MD Unavailable Unavailable SHANELL, S AYMAN MD Unavailable Unavailable SHANELL, S AYMAN MD Unavailable Unavailable SHANELL, S AYMAN MD Unavailable Unavailable SHANELL, S AYMAN MD Unavailable Unavailable SHANELL, S AYMAN MD Unavailable Unavailable SHANELL, S AYMAN MD Unavailable Unavailable SHANELL, S AYMAN MD Unavailable Unavailable SHANELL, S AYMAN MD Unavailable Unavailable SHANELL, S AYMAN MD Unavailable Unavailable SHANELL, S AYMAN MD Unavailable Unavailable SHANELL, S AYMAN MD Unavailable Unavailable SHANELL, S AYMAN MD Unavailable Unavailable SHANELL, S AYMAN MD Unavailable Unavailable SHANELL, S AYMAN MD Unavailable Unavailable SHANELL, S AYMAN MD Unavailable Unavailable SHANELL, S AYMAN MD Unavailable Unavailable SHANELL, S AYMAN MD Unavailable Unavailable SHANELL, S AYMAN MD Unavailable Unavailable SHANELL, S AYMAN MD Unavailable Unavailable SHANELL, S AYMAN MD Unavailable Unavailable SHANELL, S AYMAN MD Unavailable Unavailable SHANELL, S AYMAN MD Unavailable Unavailable SHANELL, S AYMAN MD Unavailable Unavailable SHANELL, S AYMAN MD Unavailable Unavailable SHANELL, S AYMAN MD Unavailable Unavailable SHANELL, S AYMAN MD Unavailable Unavailable SHANELL, S AYMAN MD Unavailable Unavailable SHANELL, S AYMAN MD Unavailable Unavailable SHANELL, S AYMAN MD Unavailable Unavailable SHANELL, S AYMAN MD Unavailable Unavailable SHANELL, S AYMAN MD Unavailable Unavailable SHANELL, S AYMAN MD Unavailable Unavailable SHANELL, S AYMAN MD Unavailable Unavailable SHANELL, S AYMAN MD Unavailable Unavailable SHANELL, S AYMAN MD Unavailable Unavailable SHANELL, S AYMAN MD Unavailable Unavailable SHANELL, S AYMAN MD Unavailable Unavailable SHANELL, S AYMAN MD Unavailable Unavailable SHANELL, S AYMAN MD Unavailable Unavailable SHANELL, S AYMAN MD Unavailable Unavailable SHANELL, S AYMAN MD Unavailable Unavailable SHANELL, S AYMAN MD Unavailable Unavailable SHANELL, S AYMAN MD Unavailable Unavailable SHANELL, S AYMAN MD Unavailable Unavailable SHANELL, S AYMAN MD Unavailable Unavailable SHANELL, S AYMAN MD Unavailable Unavailable SHANELL, S AYMAN MD Unavailable Unavailable SHANELL, S AYMAN MD Unavailable Unavailable SHANELL, S AYMAN MD Unavailable Unavailable SHANELL, S AYMAN MD Unavailable Unavailable SHANELL, S AYMAN MD Unavailable Unavailable SHANELL, S AYMAN MD Unavailable Unavailable SHANELL, S AYMAN MD Unavailable Unavailable SHANELL, S AYMAN MD Unavailable Unavailable SHANELL, S AYMAN MD Unavailable Unavailable SHANELL, S AYMAN MD Unavailable Unavailable SHANELL, S AYMAN MD Unavailable Unavailable SHANELL, S AYMAN MD Unavailable Unavailable SHANELL, S AYMAN MD Unavailable Unavailable SHANELL, S AYMAN MD Unavailable Unavailable SHANELL, S AYMAN MD Unavailable Unavailable SHANELL, S AYMAN MD Unavailable Unavailable Re-disclosure Warning The records that you are about to access may contain information from federally-assisted alcohol or drug abuse programs. If such information is present, then the following federally mandated warning applies: This information has been disclosed to you from records protected by federal confidentiality rules (42 CFR part 2). The federal rules prohibit you from making any further disclosure of this information unless further disclosure is expressly permitted by the written consent of the person to whom it pertains or as otherwise permitted by 42 CFR part 2. A general authorization for the release of medical or other information is NOT sufficient for this purpose. The Federal rules restrict any use of the information to criminally investigate or prosecute any alcohol or drug abuse patient.The records that you are about to access may contain highly sensitive health information, the redisclosure of which is protected by Article 27-F of the [facility] Public Health law. If you continue you may have access to information: Regarding HIV / AIDS; Provided by facilities licensed or operated by the [facility] Office of Mental Health; or Provided by the [facility] Office for People With Developmental Disabilities. If such information is present, then the following [facility] mandated warning applies: This information has been disclosed to you from confidential records which are protected by state law. State law prohibits you from making any further disclosure of this information without the specific written consent of the person to whom it pertains, or as otherwise permitted by law. Any unauthorized further disclosure in violation of state law may result in a fine or mcc sentence or both. A general authorization for the release of medical or other information is NOT sufficient authorization for further disc losure. Family History Family Member Name Family Member Gender Family Member Status Date o f Status Description Data Source(s) Unknown Male Problem [facility] ([facility] ) Unknown Male Problem [facility] ([facility] () Encounters Encounter Providers Location Date Indications Data Source(s ) Outpatient Attender: Sheryl Kidd/Susi/Joseluis/Karne 11/12/2020 09:30:00 AM EDT [facility] ([facility]) Outpatient Attender: ALLYN ROBERSON MD Main Office 10/08/2020 09:00:00 AM EDT [facility] ([facility]) Outpatient Attender: Magdiel Magallon MD Main Office 06/12/2020 09:00:00 AM EST [facility] ([facility]) Outpatient Attender: ALLYN ROBERSON MD Main Office 05/20/2020 08:00:00 AM EST [facility] ([facility]) Outpatient Attender: ALLYN ROBERSON MD Main Office 02/08/2020 08:00:00 AM EDT [facility] ([facility]) Outpatient Attender: KECIA ELAM MDAdmitter: KECIA CH MD [email or web address] 01/29/2020 12:06:00 PM EDT - 01/29/2020 04:40:00 PM EDT [facility] Patient discharged. Outpatient Attender: ALLYN ROBERSON MD Main Office 01/25/2020 12:40:00 PM EDT [facility] ([facility]) OFFICE OUTPATIENT NEW 60 MINUTES Attender: ALLYN ROBERSON MD Main Office 01/25/2020 11:00:00 AM EDT [facility] ([facility]) Immunizations Vaccine Date Status Description Data Source(s) COVID-19 VACCINE [facility] 07/09/2020 12:00:00 AM EDT completed [facility] Vaccine Series Complete: YESThis Data wa s Submitted to [facility] Via [employer]. Medications Medication Brand Name Start Date Product Form Dose Route Admi nistrative Instructions Pharmacy Instructions Status Indications Reaction Description Data Source(s) 40 mg 01/23/2021 12:00:00 AM EDT capsule,delayed release (DR/EC) 90 TAKE ONE CAPSULE BY MOUTH EVERY DAY TAKE ONE CAPSULE BY MOUTH EVERY DAY SOLD: 01/25/2021 [facility] 25 mg 10/04/2020 12:00:00 AM EDT tablet 6 TAKE ONE-HALF TABLET BY MOUTH ON TUESDAY, TUESDAY, AND TUESDAY ONLY TAKE ONE-HALF TABLET BY MOUTH ON TUESDAY, TUESDAY, AND TUESDAY ONLY SOLD: 10/06/2020 [facility] 25 mcg 08/29/2020 12:00:00 AM EDT tablet 90 TAKE ONE TABLET BY MOUTH EVERY DAY TAKE ONE TABLET BY MOUTH EVERY DAY SOLD: 08/31/2020 [facility] 100 mg 08/28/2020 12:00:00 AM EDT tablet 6 TAKE ONE TABLET BY MOUTH ONCE DAILY NEEDED TAKE ONE TABLET BY MOUTH ONCE DAILY NEEDED SOLD: 08/29/19 [facility] 200 mcg 08/12/2020 12:00:00 AM EDT tablet 90 TAKE ONE TABLET BY MOUTH EVERY DAY TAKE ONE TABLET BY MOUTH EVERY DAY SOLD: 08/25/2020 [facility] 100 mg 08/11/2020 12:00:00 AM EDT tablet 6 TAKE ONE TABLET BY MOUTH EVERY DAY TAKE ONE TABLET BY MOUTH EVERY DAY SOLD: 08/25/2020 [facility] Meclizine Hydrochloride 25 MG Oral Tablet MECLIZINE HCL 08/06/2020 12:00:00 AM EDT tablet 270 TAKE ONE TABLET BY MOUTH THR EE TIMES A DAY TAKE ONE TABLET BY MOUTH THREE TIMES A DAY SOLD: 08/07/2020 [facility] Meclizine Hydrochloride 25 MG Oral Tablet MECLIZINE HCL 08/06/2020 12:00:00 AM EDT tablet 270 TAKE ONE TABLET BY MOUTH THR EE TIMES A DAY TAKE ONE TABLET BY MOUTH THREE TIMES A DAY SOLD: 11/04/2020 [facility] 0.05 % 07/14/2020 12:00:00 AM EDT ointment 60 APPLY TO AFFECTED AREA(S) PERIRECTALLY TWO TIMES A DAY APPLY TO AFFECTED AREA(S) PERIRECTALLY T WO TIMES A DAY SOLD: 08/25/2020 [facility] 0.05 % 07/14/2020 12:00:00 AM EDT ointment 60 APPLY TO AFFECTED AREA(S) PERIRECTALLY TWO TIMES A DAY APPLY TO AFFECTED AREA(S) PERIRECTALLY T WO TIMES A DAY SOLD: 07/28/2020 [facility] 2.5 % 06/13/2020 12:00:00 AM EST cream with perineal primitivo licator 28 USE THREE TIMES A DAY NEEDED FOR BLEEDING OR RECTAL PAIN USE THREE TIMES A DAY NEEDED FOR BLEEDING OR RECTAL PAIN SOLD: 08/25/2020 [facility] 2.5 % 06/13/2020 12:00:00 AM EST cream with perineal primitivo licator 28 USE THREE TIMES A DAY NEEDED FOR BLEEDING OR RECTAL PAIN USE THREE TIMES A DAY NEEDED FOR BLEEDING OR RECTAL PAIN SOLD: 06/14/2020 [facility] 5 % 06/13/2020 12:00:00 AM EST cream 30 APPLY TO RECTUM 2-3 TIMES DAILY NEEDED FOR PAIN APPLY TO RECTUM 2-3 TIMES DAILY NEEDED FOR PAIN FREDY [facility] 2.5 % 06/13/2020 12:00:00 AM EST cream with perineal primitivo licator 28 USE THREE TIMES A DAY NEEDED FOR BLEEDING OR RECTAL PAIN USE THREE TIMES A DAY NEEDED FOR BLEEDING OR RECTAL PAIN SOLD: 07/14/2020 [facility] 5 % 06/13/2020 12:00:00 AM EST cream 30 APPLY TO RECTUM 2-3 TIMES DAILY NEEDED FOR PAIN APPLY TO RECTUM 2-3 TIMES DAILY NEEDED FOR PAIN FREDY [facility] Lidocaine 50 MG/ML Topical Cream Lidocaine (Anorectal) 06/12 12:00:00 AM EST active [facility] ([facility]) Sutab Sutab 06/12/2020 12:00:00 AM EST active [facility] ([facility]) Hydrocortisone 25 MG/ML Topical Cream [facility] 06/12/2020 12:00:00 AM EST active [facility] ( [facility]) 1.479-0.188 gram 06/12/2020 12:00:00 AM EST tablet 24 USE DIRECTED USE DIRECTED SOLD: 06/14/2020 [facility] 80 mg 05/22/2020 12:00:00 AM EST tablet 90 TAKE ONE TABLET BY MOUTH AT BEDTIME TAKE ONE TABLET BY MOUTH AT BEDTIME SOLD: 12/02/2020 [facility] 80 mg 05/22/2020 12:00:00 AM EST tablet 90 TAKE ONE TABLET BY MOUTH AT BEDTIME TAKE ONE TABLET BY MOUTH AT BEDTIME SOLD: 08/25/2020 [facility] 25 mg 05/22/2020 12:00:00 AM EST tablet 45 TAKE ONE-HALF TABLET BY MOUTH EVERY DAY TAKE ONE-HALF TABLET BY MOUTH EVERY DAY SOLD: 08/25/2020 [facility] 80 mg 05/22/2020 12:00:00 AM EST tablet 90 TAKE ONE TABLET BY MOUTH AT BEDTIME TAKE ONE TABLET BY MOUTH AT BEDTIME SOLD: 05/26/2020 [facility] 25 mg 05/22/2020 12:00:00 AM EST tablet 45 TAKE ONE-HALF TABLET BY MOUTH EVERY DAY TAKE ONE-HALF TABLET BY MOUTH EVERY DAY SOLD: 05/26/2020 [facility] 25 mg 05/22/2020 12:00:00 AM EST tablet 45 TAKE ONE-HALF TABLET BY MOUTH EVERY DAY TAKE ONE-HALF TABLET BY MOUTH EVERY DAY SOLD: 12/02/2020 [facility] 25 mg 05/21/2020 12:00:00 AM EST tablet 6 TAKE ONE-HALF TABLET BY MOUTH ON TUESDAY, TUESDAY, AND TUESDAY ONLY TAKE ONE-HALF TABLET BY MOUTH ON TUESDAY, TUESDAY, AND TUESDAY ONLY SOLD: 09/09/2020 [facility] 25 mg 05/21/2020 12:00:00 AM EST tablet 6 TAKE ONE-HALF TABLET BY MOUTH ON TUESDAY, TUESDAY, AND TUESDAY ONLY TAKE ONE-HALF TABLET BY MOUTH ON TUESDAY, TUESDAY, AND TUESDAY ONLY SOLD: 07/02/2020 [facility] 25 mg 05/21/2020 12:00:00 AM EST tablet 6 TAKE ONE-HALF TABLET BY MOUTH ON TUESDAY, TUESDAY, AND TUESDAY ONLY TAKE ONE-HALF TABLET BY MOUTH ON TUESDAY, TUESDAY, AND TUESDAY ONLY SOLD: 08/07/2020 [facility] 25 mg 05/21/2020 12:00:00 AM EST tablet 6 TAKE ONE-HALF TABLET BY MOUTH ON TUESDAY, TUESDAY, AND TUESDAY ONLY TAKE ONE-HALF TABLET BY MOUTH ON TUESDAY, TUESDAY, AND TUESDAY ONLY SOLD: 05/26/2020 [facility] 0.05 % 05/14/2020 12:00:00 AM EST ointment 60 APPLY TOPICALLY PERIRECTALLY TWO TIMES A DAY DIRECTED APPLY TOPICALLY PERIRECTALLY TWO TIMES A DAY DIRECTED SOLD: 07/02/2020 [facility] 0.05 % 05/14/2020 12:00:00 AM EST ointment 60 APPLY TOPICALLY PERIRECTALLY TWO TIMES A DAY DIRECTED APPLY TOPICALLY PERIRECTALLY TWO TIMES A DAY DIRECTED SOLD: 05/14/2020 [facility] 0.05 % 05/14/2020 12:00:00 AM EST ointment 60 APPLY TOPICALLY PERIRECTALLY TWO TIMES A DAY DIRECTED APPLY TOPICALLY PERIRECTALLY TWO TIMES A DAY DIRECTED SOLD: 06/11/2020 [facility] Citalopram 20 MG Oral Tablet CITALOPRAM HYDROBROMIDE 05/13/2020 12:00:00 AM EST tablet 90 TAKE ONE TABLET BY MOUTH EVERY D AY TAKE ONE TABLET BY MOUTH EVERY DAY SOLD: 05/14/2020 [facility] 150 mcg 05/13/2020 12:00:00 AM EST tablet 90 TAKE ONE TABLET BY MOUTH EVERY DAY TAKE ONE TABLET BY MOUTH EVERY DAY SOLD: 05/14/2020 [facility] 100 mg 05/13/2020 12:00:00 AM EST tablet 6 TAKE ONE TABLET BY MOUTH ONCE NEEDED DIRECTED TAKE ONE TABLET BY MOUTH ONCE NEEDED DIRECTED SO LD: 05/14/2020 [facility] Citalopram 20 MG Oral Tablet CITALOPRAM HYDROBROMIDE 04/17/2020 12:00:00 AM EST tablet 30 TAKE ONE TABLET BY MOUTH EVERY D AY TAKE ONE TABLET BY MOUTH EVERY DAY SOLD: 04/19/2020 [facility] 0.12 % 04/15/2020 12:00:00 AM EST mouthwash 473 RINSE MOUTH WITH 15 MLS (1 CAPFUL) FOR 30 SECONDS IN THE MORNING AND EVENING AFTER TOOTHBRUSHING, EXPECTORATE AFTER RINSING RINSE MOUTH WITH 15 MLS (1 CAPFUL) FOR 3 0 SECONDS IN THE MORNING AND EVENING AFTER TOOTHBRUSHING, EXPECTORATE AFTER RINSING SOLD: 05/03/2020 [facility] 5-325 mg 04/15/2020 12:00:00 AM EST tablet 16 TAKE ONE TABLET BY MOUTH EVERY 6 HOURS NEEDED FOR PAIN MAXIMUM DAILY DOSE = 4 TAKE ONE TABLET BY MOUTH EVERY 6 HOURS NEEDED FOR PAIN MAXIMUM DAILY DOSE = 4 SOLD: 04/15/2020 [facility] 0.12 % 04/15/2020 12:00:00 AM EST mouthwash 473 RINSE MOUTH WITH 15 MLS (1 CAPFUL) FOR 30 SECONDS IN THE MORNING AND EVENING AFTER TOOTHBRUSHING, EXPECTORATE AFTER RINSING RINSE MOUTH WITH 15 MLS (1 CAPFUL) FOR 3 0 SECONDS IN THE MORNING AND EVENING AFTER TOOTHBRUSHING, EXPECTORATE AFTER RINSING SOLD: 04/15/2020 [facility] 0.12 % 04/15/2020 12:00:00 AM EST mouthwash 473 RINSE MOUTH WITH 15 MLS (1 CAPFUL) FOR 30 SECONDS IN THE MORNING AND EVENING AFTER TOOTHBRUSHING, EXPECTORATE AFTER RINSING RINSE MOUTH WITH 15 MLS (1 CAPFUL) FOR 3 0 SECONDS IN THE MORNING AND EVENING AFTER TOOTHBRUSHING, EXPECTORATE AFTER RINSING SOLD: 05/26/2020 [facility] 800 mg 04/15/2020 12:00:00 AM EST tablet 20 TAKE ONE TABLET BY MOUTH EVERY 8 HOURS TAKE ONE TABLET BY MOUTH EVERY 8 HOURS SOLD: 04/15/2020 [facility] Citalopram 20 MG Oral Tablet CITALOPRAM HYDROBROMIDE 03/13/2020 12:00:00 AM EST tablet 30 TAKE ONE TABLET BY MOUTH EVERY D AY TAKE ONE TABLET BY MOUTH EVERY DAY SOLD: 03/16/2020 [facility] 800 mg 03/04/2020 12:00:00 AM EST tablet 20 TAKE ONE TABLET BY MOUTH EVERY 8 HOURS TAKE ONE TABLET BY MOUTH EVERY 8 HOURS SOLD: 03/16/2020 [facility] Clindamycin 150 MG Oral Capsule CLINDAMYCIN HCL 03/04/2020 12:00 :00 AM EST capsule 21 TAKE ONE CAPSULE BY MOUTH EVERY 8 HOURS UNTIL FINISHED TAKE ONE CAPSULE BY MOUTH EVERY 8 HOURS UNTIL FINISHED SOLD: 03/16/2020 [facility] 20 mg 01/31/2020 12:00:00 AM EDT tablet 30 TAKE ONE TABLET BY MOUTH EVERY DAY TAKE ONE TABLET BY MOUTH EVERY DAY SOLD: 01/31/2020 [facility] 150 mcg 01/30/2020 12:00:00 AM EDT tablet 90 TAKE ONE TABLET BY MOUTH EVERY DAY TAKE ONE TABLET BY MOUTH EVERY DAY SOLD: 01/31/2020 [facility] 25 mg 01/26/2020 12:00:00 AM EDT tablet 15 TAKE ONE-HALF TABLET BY MOUTH EVERY DAY TAKE ONE-HALF TABLET BY MOUTH EVERY DAY SOLD: 02/24/2020 [facility] 25 mg 01/26/2020 12:00:00 AM EDT tablet 15 TAKE ONE-HALF TABLET BY MOUTH EVERY DAY TAKE ONE-HALF TABLET BY MOUTH EVERY DAY SOLD: 04/25/2020 [facility] 40 mg 01/26/2020 12:00:00 AM EDT capsule,delayed release (DR/EC) 90 TAKE ONE CAPSULE BY MOUTH EVERY DAY TAKE ONE CAPSULE BY MOUTH EVERY DAY SOLD: 01/27/2020 [facility] 25 mg 01/26/2020 12:00:00 AM EDT tablet 6 TAKE ONE-HALF TABLET BY MOUTH ON TUESDAY, TUESDAY, AND TUESDAY ONLY TAKE ONE-HALF TABLET BY MOUTH ON TUESDAY, TUESDAY, AND TUESDAY ONLY SOLD: 04/25/2020 [facility] 25 mg 01/26/2020 12:00:00 AM EDT tablet 6 TAKE ONE-HALF TABLET BY MOUTH ON TUESDAY, TUESDAY, AND TUESDAY ONLY TAKE ONE-HALF TABLET BY MOUTH ON TUESDAY, TUESDAY, AND TUESDAY ONLY SOLD: 02/24/2020 [facility] 81 mg 01/26/2020 12:00:00 AM EDT tablet,delayed release (DR/EC) 90 TAKE ONE TABLET BY MOUTH EVERY DAY TAKE ONE TABLET BY MOUTH EVERY DAY SOLD: 01/27/2020 [facility] 40 mg 01/26/2020 12:00:00 AM EDT capsule,delayed release (DR/EC) 90 TAKE ONE CAPSULE BY MOUTH EVERY DAY TAKE ONE CAPSULE BY MOUTH EVERY DAY SOLD: 11/04/2020 [facility] 40 mg 01/26/2020 12:00:00 AM EDT capsule,delayed release (DR/EC) 90 TAKE ONE CAPSULE BY MOUTH EVERY DAY TAKE ONE CAPSULE BY MOUTH EVERY DAY SOLD: 04/25/2020 [facility] 25 mg 01/26/2020 12:00:00 AM EDT tablet 15 TAKE ONE-HALF TABLET BY MOUTH EVERY DAY TAKE ONE-HALF TABLET BY MOUTH EVERY DAY SOLD: 03/27/2020 [facility] 25 mg 01/26/2020 12:00:00 AM EDT tablet 15 TAKE ONE-HALF TABLET BY MOUTH EVERY DAY TAKE ONE-HALF TABLET BY MOUTH EVERY DAY SOLD: 01/27/2020 [facility] 25 mg 01/26/2020 12:00:00 AM EDT tablet 6 TAKE ONE-HALF TABLET BY MOUTH ON TUESDAY, TUESDAY, AND TUESDAY ONLY TAKE ONE-HALF TABLET BY MOUTH ON TUESDAY, TUESDAY, AND TUESDAY ONLY SOLD: 01/27/2020 [facility] 40 mg 01/26/2020 12:00:00 AM EDT capsule,delayed release (DR/EC) 90 TAKE ONE CAPSULE BY MOUTH EVERY DAY TAKE ONE CAPSULE BY MOUTH EVERY DAY SOLD: 07/28/2020 [facility] 25 mg 01/26/2020 12:00:00 AM EDT tablet 6 TAKE ONE-HALF TABLET BY MOUTH ON TUESDAY, TUESDAY, AND TUESDAY ONLY TAKE ONE-HALF TABLET BY MOUTH ON TUESDAY, TUESDAY, AND TUESDAY ONLY SOLD: 03/27/2020 [facility] 0.4 mg 01/25/2020 12:00:00 AM EDT tablet, sublingual 25 PLACE ONE TABLET UNDER THE TONGUE EVERY 5 MINUTES FOR UP TO 3 DOSES NEEDED FOR CHEST PAIN. PLACE ONE TABLET UNDER THE TONGUE EVERY 5 MINUTES FOR UP TO 3 DOSES NEEDED FOR CHEST PAIN. SOLD: 01/27/2020 [facility] 20 mg 01/25/2020 12:00:00 AM EDT tablet 60 TAKE ONE TABLET BY MOUTH THREE TIMES A DAY TAKE ONE TABLET BY MOUTH THREE TIMES A DAY SOLD: 01/25/2020 [facility] 80 mg 01/25/2020 12:00:00 AM EDT tablet 30 TAKE ONE TABLET BY MOUTH AT BEDTIME TAKE ONE TABLET BY MOUTH AT BEDTIME SOLD: 04/25/2020 [facility] atorvastatin 80 MG Oral Tablet ATORVASTATIN CALCIUM 01/25/2020 1 2:00:00 AM EDT tablet 30 TAKE ONE TABLET BY MOUTH AT BEDT BARB TAKE ONE TABLET BY MOUTH AT BEDTIME SOLD: 02/24/2020 [facility] 250 mg 01/25/2020 12:00:00 AM EDT tablet 40 TAKE ONE TABLET BY MOUTH THREE TIMES A DAY TAKE ONE TABLET BY MOUTH THREE TIMES A DAY SOLD: 01/25/2020 [facility] clopidogrel 75 MG Oral Tablet Clopidogrel Bisulfate 01/25/2020 1 2:00:00 AM EDT ORAL completed [facility] ([facility]) Aspirin 81 MG Delayed Release Oral Tablet Aspirin 81 2019 12:00:00 AM EDT ORAL completed [facility] ([facility]) Omeprazole 40 MG Delayed Release Oral Capsule Omeprazole 01/25/2020 12:00:00 AM EDT ORAL active [facility] 500 mg 01/25/2020 12:00:00 AM EDT tablet 20 TAKE ONE TABLET BY MOUTH TWICE A DAY TAKE ONE TABLET BY MOUTH TWICE A DAY SOLD: 01/25/2020 [facility] Nitroglycerin 0.4 MG Sublingual Tablet Nitroglycerin 0 12:00:00 AM EDT SUBLINGUAL active [facility] T ([facility]) atorvastatin 80 MG Oral Tablet Atorvastatin Calcium 01/25/2020 1 2:00:00 AM EDT active [facility] ( [facility]) 75 mg 01/25/2020 12:00:00 AM EDT tablet 90 TAKE 2 TABLETS BY MOUTH TODAY ( 01/25/20 ) THEN 1 TABLET EVERY DAY TAKE 2 TABLETS BY MOUTH TODAY ( 01/25/20 ) THEN 1 TABLET EVERY DAY SOLD: 01/25/2020 [facility] 80 mg 01/25/2020 12:00:00 AM EDT tablet 30 TAKE ONE TABLET BY MOUTH AT BEDTIME TAKE ONE TABLET BY MOUTH AT BEDTIME SOLD: 03/27/2020 [facility] Spironolactone 25 MG Oral Tablet Spironolactone 01/25/2020 12:00:00 A M EDT active [facility] ([facility]) atorvastatin 80 MG Oral Tablet ATORVASTATIN CALCIUM 01/25/2020 1 2:00:00 AM EDT tablet 30 TAKE ONE TABLET BY MOUTH AT BEDT BARB TAKE ONE TABLET BY MOUTH AT BEDTIME SOLD: 01/25/2020 [facility] Chlorthalidone 25 MG Oral Tablet Chlorthalidone 01/25/2020 12:00:00 A M EDT active [facility] ([facility]) Meclizine Hydrochloride 25 MG Oral Tablet Meclizine HCL 01/24/2020 12:00:00 AM EDT ORAL active [facility] ([facility]) Levothyroxine Sodium 0.15 MG Oral Tablet Levothyroxine Sodiu m 01/24/2020 12:00:00 AM EDT ORAL active M [facility] ([facility]) 300 mg 01/17/2020 12:00:00 AM EDT capsule 30 TAKE ONE CAPSULE BY MOUTH THREE TIMES A DAY TAKE ONE CAPSULE BY MOUTH THREE TIMES A DAY SOLD: 01/17/2020 [facility] 20 mg 12/26/2019 12:00:00 AM EDT capsule,delayed release (DR/EC) 60 TAKE ONE CAPSULE BY MOUTH TWICE A DAY TAKE ONE CAPSULE BY MOUTH TWICE A DAY SOLD: 12/28/2019 [facility] 0.05 % 10/30/2019 12:00:00 AM EDT ointment 50 APPLY TO AFFECTED AREA(S) TOPICALLY TWO TIMES A DAY APPLY TO AFFECTED AREA(S) TOPICALLY TWO TIMES A DAY SOLD: 12/28/2019 [facility] Insurance Providers Payer name Policy type / Coverage type Policy ID Covered green party ID Covered green party's relationship to urena Policy Urena Plan Information [facility] [id number] SP [id number] [facility] Workers Compensation [id number] Self [id number] [facility]) Workers Compensation [id number] Self [id number] [facility]) Workers Compensation [id number] Self [id number] [facility]) Workers Compensation [id number] Self [id number] [facility]) Workers Compensation [id number] Self [id number] [facility]) Workers Compensation [id number] Self [id number] [facility] Workers Compensation [id number] Self [id number] [facility] Workers Compensation [id number] Self [id number] [facility] DIV [id number] SP [id number] [facility] [id number] SP [id number] BS [facility] DIV [id number] SP [id number] [facility] Workers Compensation [id number] Self [id number] [facility] Workers Compensation [id number] Self [id number] [facility] Workers Compensation [id number] Self [id number] [facility] Workers Compensation [id number] Self [id number] [employer] [id number] Florinda YLS [id number] [employer]D O [id number] S [id number] [employer] O [id number] S [id number] [employer] O [id number] S [id number] [employer]D [id number] SP [id number] STATE INSURANCE FUND O [id number] O [id number] [facility] O [id number] S [id number] [facility] Health Maintenance Organization (HMO) [id number] Self [id number] [facility] [id number] SP [id number] [employer] COMM [id number] S [id number] [facility] [id number] SP [id number] Problems, Conditions, and Diagnoses Code Display Name Description Problem Type Effective Dates Data Source(s) I11.9 Hypertensive heart disease without heart failure Hypertensive heart disease without heart Diagnosis 01/29/2020 12:06:00 PM EDT [facility] R06.02 Shortness of breath Shortness of breath Diagnosis 1 12:06:00 PM EDT [facility] R07.2 Precordial pain Precordial pain Diagnosis 01/29/2020 12:0 6:00 PM EDT [facility] [id number] Hemorrhage of rectum and anus Hemorrhage of rectum and anus Problem 06/12/2020 12:00:00 AM EST [facility] ([facility]) I35.1 Aortic valve disorder Aortic valve disorder Problem 05/20/2020 12:00:00 AM EST [facility] ([facility]) R07.2 Precordial pain Precordial pain Problem 01/25/2020 12:0 0:00 AM EDT [facility] ([facility]) I11.9 Benign hypertensive heart disease withou t congestive heart failure Benign hypertensive heart disease without congestive heart failure Problem 01/25/2020 12:00:00 AM EDT [facility] ([facility]) I71.2 Aneurysm of thoracic aorta Aneurysm of thoracic aorta Problem 01/25/2020 12:00:00 AM EDT [facility] ([facility]) G47.33 Obstructive sleep apnea syndrome Obstructive sle ep apnea syndrome Problem 01/25/2020 12:00:00 AM EDT [facility] ([facility]) I34.0 Mitral valve disorder Mitral valve disorder Problem 01/25/2020 12:00:00 AM EDT [facility] ([facility]) R94.31 Electrocardiogram abnormal Electrocardiogram abnormal Problem 01/25/2020 12:00:00 AM EDT [facility] ([facility]) R06.02 Dyspnea Dyspnea Problem 01/25/2020 12:00:00 AM ED T [facility] ([facility]) Surgeries/Procedures Procedure Description Date Indications Data Source(s) OFFICE OUTPATIENT VISIT 15 MINUTES 11/12/2020 12:00:00 AM EDT [facility] ([facility], ) ECG ROUTINE ECG W/LEAST 12 LDS W/I&R 10/08/2020 12:00: 00 AM EDT [facility] ([facility]) COLSC FLX PROX SPLENIC FLXR RMVL LES SNARE TQ 06/26/19 12:00:00 AM EST [facility] ([facility]) ECHO TTHRC R-T 2D W/WOM-MODE COMPL SPEC&COLR DOP 04/22 12:00:00 AM EST [facility] ([facility]) Left Heart Cath W/Wo LV & Coronary Angiography 020 12:00:00 AM EDT [facility] ([facility]) ECG ROUTINE ECG W/LEAST 12 LDS W/I&R 01/25/2020 12:00: 00 AM EDT [facility] ([facility]) CV STRS TST XERS&/OR RX CONT ECG PHYS SI&R 01/25/2020 12:00:00 AM EDT [facility] ([facility]) Results ID Date Data Source [id number] 02/16/2021 12:00:00 AM EDT [facility] Name Value Range Interpretation Code Description Data Carolin rce(s) Supporting Document(s) PCR NEGATIVE [facility] This lab was ordered by [facility] are and reported by [facility]. ID Date Data Source [id number] 10/06/2020 11:43:00 AM EDT [facility] ([facility]) Name Value Range Interpretation Code Description Data Carolin rce(s) Supporting Document(s) Natriuretic peptide.B prohormone N-Terminal [Mass/volu me] in Serum or Plasma 33 pg/mL [facility] ([facility]) ID Date Data Source [id number] 08/26/2020 11:09:00 AM EDT [facility] ([facility]) Name Value Range Interpretation Code Description Data Carolin rce(s) Supporting Document(s) White Blood Count 5.1 4.0-10.0 [facility] Red Blood Count 4.87 4.30-6.10 [facility] ([facility]io [facility]) Platelets 206 150-450 [facility] Hematocrit 44.3 [facility] ([facility]) Hemoglobin 14.6 [facility] ([facility]) ID Date Data Source [id number] 08/26/2020 11:09:00 AM EDT [facility] ([facility]) Name Value Range Interpretation Code Description Data Carolin rce(s) Supporting Document(s) Hemoglobin A1c/Hemoglobin.total in Blood 5.6 [facility] ([facility]) ID Date Data Source [id number] 08/26/2020 11:09:00 AM EDT [facility] ([facility]) Name Value Range Interpretation Code Description Data Carolin rce(s) Supporting Document(s) Thyroid Stimulating Hormone 5.610 [place] [facility] ([facility]) ID Date Data Source [id number] 08/26/2020 11:09:00 AM EDT [facility] ([facility]) Name Value Range Interpretation Code Description Data Carolin rce(s) Supporting Document(s) Cholesterol 165 [facility] ([facility]) Triglycerides 131 [facility] ([facility]) Cholesterol in LDL [Mass/volume] in Serum or Plasma by calculation 93 [facility] ([facility]) HDL 46 [facility] ([facility]) Chol/HDL Ratio 3.586 [facility] ([facility]iol [facility]gy [facility]) ID Date Data Source [id number] 08/26/2020 11:09:00 AM EDT [facility] ([facility]) Name Value Range Interpretation Code Description Data Carolin rce(s) Supporting Document(s) Alanine aminotransferase [Enzymatic activity/volume] in Serum or Pl asma 36 [facility] ([facility]) Calcium [Mass/volume] in Serum or Plasma 9.5 [facility] ([facility]) Albumin [Mass/volume] in Serum or Plasma 3.9 [facility] ([facility]) Carbon dioxide, total [Moles/volume] in Serum or Plasma 31 [facility] ([facility]) Alkaline phosphatase [Enzymatic activity/volume] in Serum or Plasma 7 3 [facility] ([facility]) Chloride [Moles/volume] in Serum or Plasma 107 [facility] ([facility]) Protein [Mass/volume] in Serum or Plasma 7.0 [facility] ([facility]) Potassium [Moles/volume] in Serum or Plasma 4.3 [facility] ([facility]) Sodium 142 [facility] Urea nitrogen [Mass/volume] in Serum or Plasma 13 [facility] ([facility]) Aspartate aminotransferase [Enzymatic activity/volume] in Serum or Plasma 23 [facility] ([facility]) Glucose 94 70-100 [facility] ([facility]) Creatinine For GFR 1.13 [facility] (Car dioly [facility]) ID Date Data Source [id number] 06/25/2020 10:50:00 AM EST [facility] ([facility]) Name Value Range Interpretation Code Description Data Carolin rce(s) Supporting Document(s) Surgical pathology study Laboratory test result [facility] ([facility]) FINAL DIAGNOSIS A - Splenic flexure, polyp, polypectomy: Adenomatous polyp/tubular adenoma. B - Transverse colon, polyps, polypectomy: Adenomatous polyp/tubular adenoma fragments. 06/26/2020 - 131 CLINICAL DIAGNOSIS Screening 06/26/2020 - 703 GROSS DIAGNOSIS A - Received in formalin labeled "splenic flexure polyp" is a 0.7 x 0.3 x 0.3 cm. aggregate of polyp fragments. All in one. B - Received in formalin labeled "transverse colon polyps" is a 0.9 x 0.3 x 0.3 cm aggregate of polyp fragment s. All in one. -BRIAN 06/26/2020 - 8 Signed Buck Escobedo MD 06/26/2020 1423 ID Date Data Source [id number] 06/20/2020 11:30:00 AM EST [facility] Name Value Range Interpretation Code Description Data Carolin rce(s) Supporting Document(s) SARS coronavirus 2 RNA Not Detected [facility] This lab was ordered by [facility] and reported by [facility]. ID Date Data Source [id number] 02/08/2020 08:43:00 AM EDT [facility] ([facility]) Name Value Range Interpretation Code Description Data Carolin rce(s) Supporting Document(s) Magnesium [Mass/volume] in Serum or Plasma 2.2 mg/dL 1.8-2.4 [facility] ([facility]) Natriuretic peptide.B prohormone N-Terminal [Mass/volu me] in Serum or Plasma 27 pg/mL [facility] ([facility]) ID Date Data Source [id number] 02/08/2020 08:43:00 AM EDT [facility] ([facility]) Name Value Range Interpretation Code Description Data Carolin rce(s) Supporting Document(s) Glucose, Fasting 100 mg/dL 70-100 [facility] ([facility]) Creatinine For GFR 1.30 mg/dL 0.70-1.30 [facility] ([facility]) Blood Urea Nitrogen 18 mg/dL 7-18 [facility] (Ca rdiology [facility]) Glomerular Filtration Rate Laboratory test result [facility] ([facility]) <content>Units are mL/min/1.73 m2</content>
<content></content>
<content>Chronic Kidney Disease Staging per NKF:</content>
<content></content>
<content>Stage I & II GFR >=60 Normal to Mildly Decreased</content>
<content>Stage III GFR 30- 59 Moderately Decreased</content>
<content>Stage IV GFR 15-29 Severely Decreased</content>
<content>Stage V GFR <15 Very Little GFR Left</content>
<content>ESRD GFR <15 on SUPERVISOR [employer] TRUCK INSTALLATION</content>
<content></content> Potassium Serum 4.0 meq/L 3.5-5.1 [facility] ([facility]) Sodium Level 139 meq/L 136-145 [facility] ([facility]) Anion Gap 6 meq/L 8-16 [facility] Carbon Dioxide Level 26 meq/L 21-32 [facility] (C ardiology [facility]) Chloride Level 107 meq/L 98-107 [facility] ([facility]iol [facility]gy [facility]) Albumin 4.1 GM/DL 3.2-5.2 [facility] ([facility] Phosphorus Level 3.1 mg/dL 2.5-4.9 [facility] ([facility] Calcium Level 9.4 mg/dL 8.5-10.1 [facility] ([facility]) ID Date Data Source [id number] 01/29/2020 02:12:02 PM EDT [facility] Name Value Range Interpretation Code Description Data Carolin rce(s) Supporting Document(s) &PDF [facility] [id number]FQDeCMGEjOFB8wEkMdREJw waW [file] [id number] ID Date Data Source [id number] 01/29/2020 12:46:54 PM EDT [facility] Name Value Range Interpretation Code Description Data Carolin rce(s) Supporting Document(s) EKG [facility] [id number]MZTrGMPJQR7GdSYe jb2 [file] X1YfAryNoHWZ+candy polisher/ONQNbOQLPXb9lC0P9KIbVpDHYGDLnMxjnWONSK0WXmTOQvJG3xgSJLJ0vIFlthRD [file] [id number]7Khl kAKrEe035lpP048bHV/d39ixO0JSc/4HHZeCjAjvzuGreBCzQT5YIL4zl7LbZzE4VIFpc0FwVNkeOUj7 aFJqAColauBmj0PgxbcvT0Zkq3ZhJkVlIPLwEvUoEly9KBRrBxP8zKMiNvLzLOYpJ2KfIJWfYeJ5CgJz GDBKOK2DRSAbeuRjKkKbMNL+DaBdVQ1cppnjZPXxj4 HbUGqdNHcxJWNiU1P1zLhzDYOhY2FmkU90FSBoR6AcloR2GJF5KJAtGmEkIJXanRRnIVMfHPF+PmVuZG 0wbnhhWZRfj4ThPEgoKWL9kL3iIReAOTCIZMpOZMpgUdH3i41eroZTPVCuKUOfUI3NxbPjcAwntpGcjE YoQVU3HbDwAHQaESZwVrL8GBCQAYIpOPNfDCCsDXMo V4KtkWjtJDhPZYBXRYuPSJxdAtGmq5I8PEOencTTDBLNHQTcWQRJKBMxQLU7WHV9BelhWY2SzORaDOL3 LEpFMXCBINqJMZysUmRyh8G0XUAbP4NvNQRwvbIuRFPWFEvlRjtgXI4caJojsmqcO2LppIYfHXEHRGFw RONkYSCqDWLgU9Whp8I4H8FaWZcXCNKEVMtFXJhyAu U2k24vdyIBTWNgXPPcFU4+BD1mk2HrFx5HWEQzXA9dqag4FR1LnQGdQR8IYVjydrZxQ6dgtnQmEcReNO CQGR7vZ6FdvX20QMW+FuZqSL4fzbs5arBsEsKpXMLzFMNpJLElCUrgTVKtYMRdRTSiNKN1QYT5EERaBa CxCDMzCOB4LBtqODUsIBOptcETYRGuLXZ1KhW9JAZf JMEaTZYpHSagGMFyHYPnIGFuCRKtCNXwFV6nUuNeFIZwJJWgQMDsDfG7NeIcJyPSAMAgLJGxXKKaDgUs UBWxGVMfROooMMTxZXIgFAo3PJCwUSAhMH4kHrKvROPoVURvUKAuUALfKCHklxMRUPOeHHUmNPK4XINm GTEtALAwQPdqSYByCQBsWGJ9VWXiMPUnIU3jXeHmDB FwFMP4PmElCMCnNUZsovVGUBCiLYOtAJS9BBTiGNJiYKZfLDmzSPHoMUNyKfM0OMEoWEEeTC3rMoKrUW ClPZR6APUgHYAxANDvgqLEHWYhOAGpZHm7EbDdFCKnDXGqADxmGVGhZIGbUUgwVSQmIUXlRN9pTmWlCH BpTRKiFTBxXLDwPIUtwmKMYRSoZLKgISP9EvWmDZSp YUUmGGpmQZCwEKTrSLQ5TTIcTATjWC5bTkWePEEfUTKsYzKvBRLuQOIjosXLNUOcQQYwOXTsJWEnPVGo EYArQFisPHJvOZEbGfA8QRRpENIpDN4gZzUuHBEtAOS2UTGpYISyXWLvdcVLPTMnWFSeIHDwOCY7FMKw ZSWoUAl9jjIqjRFpDmi8Ig5JqEtqAWU9Jc4MkcUmUQ DgGCTWHf9Ff286UZLxKCMYDya+SxzgdIGxvOzkHAWSUKR2CaWTUOSCG9L= ID Date Data Source [id number] 01/29/2020 12:31:54 PM EDT [facility] INFORMATIONPatient MRN Name Date of Age Gend*PT [id number] Pratibha Sloan 1970 49 years M HOPPT Location Admission Date/Time Visit ID Attending Provider01/29/20 1206 --- Kecia Elam MD([id number]) EPI ID CSN Admitting Provider [id number] Kecia Elam MD([id number])Updated H&PPlease see the scanned/dictated outpatient note.I have reviewed the note, clinical history and physical exam findings. Therehave been no significant changes.Plan as outlined in the outpatient note.Risk/benifit/alternative of cardiac catheterization was discussed withpatient/family. Risks included, but not limited to; [place], CVA, , renalimpairment, vascular complication, and need for emergency surgery were discussedand accepted by patient.Kecia Elam MD, [facility] Name Value Range Interpretation Code Description Data Carolin rce(s) Supporting Document(s) ID Date Data Source [id number] 01/25/2020 02:12:00 PM EDT [facility] ([facility]) Name Value Range Interpretation Code Description Data Carolin rce(s) Supporting Document(s) Glucose, Fasting 91 mg/dL 70-100 [facility]) Creatinine For GFR 1.20 mg/dL 0.70-1.30 [facility] Blood Urea Nitrogen 16 mg/dL 7-18 [facility] (Ca [facility]diology [facility]) Glomerular Filtration Rate Laboratory test result [facility] ([facility]) <content>Units are mL/min/1.73 m2</content>
<content></content>
<content>Chronic Kidney Disease Staging per NKF:</content>
<content></content>
<content>Stage I & II GFR >=60 Normal to Mildly Decreased</content>
<content>Stage III GFR 30- 59 Moderately Decreased</content>
<content>Stage IV GFR 15-29 Severely Decreased</content>
<content>Stage V GFR <15 Very Little GFR Left</content>
<content>ESRD GFR <15 on SUPERVISOR [employer] TRUCK INSTALLATION</content>
<content></content> Sodium Level 138 meq/L 136-145 [facility] (Cardiolog y [facility]) Potassium Serum 4.2 meq/L 3.5-5.1 [facility] (Cardio [facility]y [facility]) Carbon Dioxide Level 27 meq/L 21-32 [facility] (C ardiology [facility]) Chloride Level 105 meq/L 98-107 [facility] (Cardiol ogy [facility]) Phosphorus Level 3.2 mg/dL 2.5-4.9 [facility] (Cardi [facility]y [facility]) Calcium Level 9.4 mg/dL 8.5-10.1 [facility] (Cardiolo gy [facility]) Anion Gap 6 meq/L 8-16 [facility] ([facility]) Albumin 4.2 GM/DL 3.2-5.2 [facility] ID Date Data Source [id number] 01/25/2020 02:12:00 PM EDT [facility] ([facility]i [facility]y [facility]) Name Value Range Interpretation Code Description Data Carolin rce(s) Supporting Document(s) Prothrombin Time 13.1 s 12.5-14.3 [facility] ([facility]i [facility]y [facility]) Inr 0.97 [facility] ([facility]) THERAPUTIC HUMAN INR VALUES INDICATIONS NORMAL RANGES PROPHYLAXIS/TREATMENT OF: VENOUS THROMBOSIS 2.0-3.0 PULMONARY EMBOLISM 2.0-3.0 PREVENTION OF SYSTEMIC EMBOLISM FROM: TISSUE HEART VALVES 2.0-3.0 ACUTE MYOCARDIAL INFARCTION 2.0-3.0 VALVULAR HEART DISEASE 2.0-3.0 ATRIAL FIBRILLATION 2.0-3.0 MECHANICAL VALVES(HIGH RISK) 2.5-3.5 RECURRENT MYOCARDIAL INFARCTION 2.5-3.5 ID Date Data Source [id number] 01/25/2020 02:12:00 PM EDT [facility]) Name Value Range Interpretation Code Description Data Carolin rce(s) Supporting Document(s) Hemoglobin 14.0 g/dL 13.5-17.5 [facility] Red Blood Count 4.75 10 4.30-6.10 [facility] ([facility]io [facility]y [facility]) White Blood Count 6.1 10 4.0-10.0 [facility]) Mean Corpuscular Volume 88.0 fl 80.0-96.0 M [facility]) Hematocrit 41.8 % 42.0-52.0 [facility]) Mean Corpuscular HGB Conc 33.5 g/dL 32.0-36.5 [facility] ([facility]iology [facility]) Mean Corpuscular Hemoglobin 29.5 pg 27.0-33.0 [facility] Red Cell Distribution Width 13.6 % 11.5-14.5 [facility] Platelet Count, Automated 198 10 150-450 [facility] Nucleated Red Blood Cell % 0.0 % 0-0 [facility] ([facility]iology [facility]) Procedure Social History Code Duration Value Status Description Data Source(s ) Smoking 11/12/2020 12:00:00 AM EDT Patient is a former smoker completed Patient is a former smoker [facility] ([facility], ) Smoking 01/25/2020 12:00:00 AM EDT Patient is a former smoker completed Patient is a former smoker [facility] [place] Vital Signs ID Date Data Source UNK Name Value Range Interpretation Code Description Data Source(s) Systolic blood pressure 120 mm[Hg] 120 mm[Hg] M [facility] ([facility], ) Diastolic blood pressure 80 mm[Hg] 80 mm[Hg] [facility] ([facility], ) Heart rate 80 /min 80 /min [facility] ([facility], ) Oxygen saturation in Arterial blood by Pulse oximetry 97 % 97 % [facility] Body height 73.5 [in_i] 73.5 [in_i] [facility] ([facility]) 6'1.50" Body weight 308.00 [lb_av] 308.00 [lb_av] [facility] ([facility]) Body mass index (BMI) [Ratio] 40.1 kg/m2 40.1 k g/m2 [facility] ([facility]) [place] body weight 184 [lb_av] 184 [lb_av] [facility] ([facility]) Body weight 139.709 kg 139.709 kg [facility] ([facility]) Body surface area Derived from formula 2.60 m2 2.60 m2 [facility] ([facility]) Body weight 301.00 [lb_av] 301.00 [lb_av] [facility] ([facility]) Body height 75 [in_i] 75 [in_i] [facility] 6'3" Body mass index (BMI) [Ratio] 37.6 kg/m2 37.6 k g/m2 [facility] ([facility]) Heart rate 76 /min 76 /min [facility] ([facility]) regular Respiratory rate 16 /min 16 /min [facility] ( [facility]) Systolic blood pressure--sitting 122 mm[Hg] 122 mm[Hg] [facility] ([facility]) large cuff, Ra Diastolic blood pressure--sitting 78 mm[Hg] 78 mm[Hg] [facility] ([facility]) large cuff, Ra Systolic blood pressure--supine 121 mm[Hg] 121 mm[Hg] [facility] ([facility]) Diastolic blood pressure--supine 80 mm[Hg] 80 mm[Hg] [facility] ([facility]) Body weight 304.00 [lb_av] 304.00 [lb_av] [facility] ([facility]) Body height 74 [in_i] 74 [in_i] [facility] ([facility]) 6'2" Systolic blood pressure 126 mm[Hg] 126 mm[Hg] M [facility] ([facility]) Diastolic blood pressure 88 mm[Hg] 88 mm[Hg] [facility] ([facility]) Heart rate 77 /min 77 /min [facility] ([facility]) Body mass index (BMI) [Ratio] 39.0 kg/m2 39.0 k g/m2 [facility] ([facility]) Body weight 137.894 kg 137.894 kg [facility]) Body temperature 97.9 [degF] 97.9 [degF] [facility] ([facility]) Respiratory rate 16 /min 16 /min [facility] ( [facility]) Systolic blood pressure--sitting 116 mm[Hg] 116 mm[Hg] [facility] ([facility]) large cuff, Ra Diastolic blood pressure--sitting 82 mm[Hg] 82 mm[Hg] [facility] ([facility]) large cuff, Ra Systolic blood pressure--supine 124 mm[Hg] 124 mm[Hg] [facility] ([facility]) Diastolic blood pressure--supine 84 mm[Hg] 84 mm[Hg] [facility] ([facility]) Body weight 300.00 [lb_av] 300.00 [lb_av] [facility] ([facility]) Body height 75 [in_i] 75 [in_i] [facility] 6'3" Body mass index (BMI) [Ratio] 37.5 kg/m2 37.5 k g/m2 [facility] ([facility]) Heart rate 64 /min 64 /min [facility] ([facility] regular Diastolic blood pressure--sitting 76 mm[Hg] 76 mm[Hg] [facility] ([facility]) large cuff, Ra Body weight 289.00 [lb_av] 289.00 [lb_av] [facility] ([facility]) Body height 75 [in_i] 75 [in_i] [facility] 6'3" Body mass index (BMI) [Ratio] 36.1 kg/m2 36.1 k g/m2 [facility] ([facility]) Heart rate 72 /min 72 /min [facility] ([facility] regular Respiratory rate 16 /min 16 /min [facility] ( [facility]) Systolic blood pressure--sitting 116 mm[Hg] 116 mm[Hg] [facility] ([facility]) large cuff, Ra Systolic blood pressure--supine 114 mm[Hg] 114 mm[Hg] [facility] ([facility]) Diastolic blood pressure--supine 75 mm[Hg] 75 mm[Hg] [facility] ([facility]) Diastolic blood pressure--sitting 86 mm[Hg] 86 mm[Hg] [facility] ([facility]) large cuff, Ra - 136/88 1 min later; 139 /88 [place] Diastolic blood pressure--supine 88 mm[Hg] 88 mm[Hg] [facility] ([facility]) Ra Systolic blood pressure--supine 142 mm[Hg] 142 mm[Hg] [facility] ([facility]) Ra Body mass index (BMI) [Ratio] 36.7 kg/m2 36.7 k g/m2 [facility] ([facility]) Heart rate 68 /min 68 /min [facility] ([facility]) regular Respiratory rate 16 /min 16 /min [facility] ( [facility]) Body weight 294.00 [lb_av] 294.00 [lb_av] [facility] ([facility]) Body height 75 [in_i] 75 [in_i] [facility]) 6'3" Systolic blood pressure--sitting 129 mm[Hg] 129 mm[Hg] [facility] ([facility]) large cuff, Ra - 136/88 1 min later; 139 /88 [place] Oxygen saturation in Arterial blood by Pulse oximetry 96 % 96 % [facility] ([facility]) Oxygen saturation in Arterial blood by Pulse oximetry --post exerci se 96 % 96 % [facility] ([facility])
[2021-02-23] MEDS ORDERED: TETRACAINE 0.5% OPHTH SOLN 4ML OS ONE (00:20)
[2021-02-23] MEDS ORDERED: FLUORESCEIN OPHTH 1 MG STRIP OS ONE (00:20)
--- OUTSIDE RECORDS SUMMARY | 2021-02-23 00:28 | CCD ---
Author Author [facility] Organization [facility] Address Unknown Phone Unavailable Care Team Providers Care Vending Machine Attendant Name Role Phone Lauren, L Sheryl COGNOS REPORT DEVELOPER Unavailable Unavailable Lauren, L Sheryl COGNOS REPORT DEVELOPER Unavailable Unavailable Lauren, L Sheryl COGNOS REPORT DEVELOPER Unavailable Unavailable Lauren, L Sheryl COGNOS REPORT DEVELOPER Unavailable Unavailable Lauren, L Sheryl COGNOS REPORT DEVELOPER Unavailable Unavailable Lauren, L Sheryl COGNOS REPORT DEVELOPER Unavailable Unavailable Lauren, L Sheryl COGNOS REPORT DEVELOPER Unavailable Unavailable Lauren, L Sheryl COGNOS REPORT DEVELOPER Unavailable Unavailable Lauren, L Sheryl COGNOS REPORT DEVELOPER Unavailable Unavailable Lauren, L Sheryl COGNOS REPORT DEVELOPER Unavailable Unavailable Lauren, L Sheryl COGNOS REPORT DEVELOPER Unavailable Unavailable Lauren, L Sheryl COGNOS REPORT DEVELOPER Unavailable Unavailable Lauren, L Sheryl COGNOS REPORT DEVELOPER Unavailable Unavailable Lauren, L Sheryl COGNOS REPORT DEVELOPER Unavailable Unavailable Lauren, L Sheryl COGNOS REPORT DEVELOPER Unavailable Unavailable Lauren, L Sheryl COGNOS REPORT DEVELOPER Unavailable Unavailable Lauren, L Sheryl COGNOS REPORT DEVELOPER Unavailable Unavailable Lauren, L Sheryl COGNOS REPORT DEVELOPER Unavailable Unavailable Lauren, L Sheryl COGNOS REPORT DEVELOPER Unavailable Unavailable Lauren, L Sheryl COGNOS REPORT DEVELOPER Unavailable Unavailable Lauren, L Sheryl COGNOS REPORT DEVELOPER Unavailable Unavailable Lauren, L Sheryl COGNOS REPORT DEVELOPER Unavailable Unavailable Lauren, L Sheryl COGNOS REPORT DEVELOPER Unavailable Unavailable Lauren, L Sheryl COGNOS REPORT DEVELOPER Unavailable Unavailable Lauren, L Sheryl COGNOS REPORT DEVELOPER Unavailable Unavailable Tavo Magallon MD Unavailable Unavailable [...] Unavailable Unavailable Kemar ROBERSON MD Unavailable Unavailable eKmar ROBERSON MD Unavailable Unavailable Kemar ROBERSON MD [...] Unavailable SHANELL, S AYMAN MD Unavailable Unavailable HSANELL, S AYMAN MD Unavailable Unavailable SHANELL, S [...] is protected by Article 27-F of the [facility] Public Health law. If you continue you may have access to information: Regarding HIV / AIDS; Provided by facilities licensed or operated by the [facility] Office of Mental Health; or Provided by the [facility] Office for People With Developmental Disabilities. If such information is present, then the following [facility] mandated warning applies: This information has been [...] law may result in a fine or care home sentence or both. A general authorization for the release of medical or other information is NOT sufficient authorization for further disc losure. Family History Family Member Name Family Member Gender Family Member Status Date o f Status Description Data Source(s) Unknown Male Problem [facility] ([facility] ) Unknown Male Problem [facility] ([facility] () Encounters Encounter Providers Location Date Indications Data Source(s ) Outpatient Attender: Sheryl Kidd/Susi/Joseluis/Karen 11/12/2020 09:30:00 AM EDT [facility] ([facility] Outpatient Attender: ALLYN ROBERSON MD Main Office 10/08/2020 09:00:00 AM EDT [facility] ([facility]) Outpatient Attender: Magdiel Magallon MD Main Office 06/12/2020 09:00:00 AM EST [facility] ([facility]) Outpatient Attender: ALLYN ROBERSON MD Main Office 05/20/2020 08:00:00 AM EST [facility] ([facility]) Outpatient Attender: ALLYN ROBERSON MD Main Office 02/08/2020 08:00:00 AM EDT MED[facility] ([facility]) Outpatient Attender: KECIA ELAM MDAdmitter: KECIA CH MD [id number].CVAU 01/29/2020 12:06:00 PM EDT - 01/29/2020 04:40:[address] [facility] Patient discharged. Outpatient Attender: ALLYN ROBERSON MD Main Office 01/25/2020 12:40:00 PM EDT MED[facility] ([facility]) OFFICE OUTPATIENT NEW 60 MINUTES Attender: ALLYN ROBERSON MD Main Office 01/25/2020 11:00:00 AM EDT [facility] ([facility]) Immunizations Vaccine Date Status Description Data Source(s) COVID-19 VACCINE [place] 07/09/2020 12:00:00 AM EDT completed [facility] Vaccine Series Complete: YESThis Data wa s Submitted to [facility] [place]. Medications Medication Brand Name Start Date Product [...] RECTUM 2-3 TIMES DAILY NEEDED FOR PAIN FREYD [facility] Lidocaine 50 MG/ML Topical Cream [...] AM EDT ORAL completed MEDENT ([facility]) Aspirin 81 MG Delayed Release Oral Tablet Aspirin 81 2019 12:00:00 AM EDT ORAL completed MED[facility] ([facility]) Omeprazole 40 MG Delayed Release Oral Capsule Omeprazole 01/25/2020 12:00:00 AM EDT ORAL active [facility] 500 mg 01/25/2020 12:00:00 AM EDT tablet 20 TAKE ONE TABLET BY MOUTH TWICE A DAY TAKE ONE TABLET BY MOUTH TWICE A DAY SOLD: 01/25/2020 [facility] Nitroglycerin 0.4 MG Sublingual Tablet Nitroglycerin 0 12:00:00 AM EDT SUBLINGUAL active MEDEN T ([facility]) atorvastatin 80 MG Oral Tablet Atorvastatin Calcium 01/25/2020 1 2:00:00 AM EDT active MEDENT ( [facility]) 75 mg 01/25/2020 12:00:00 AM EDT [...] 01/25/2020 12:00:00 A M EDT active MED[facility] ([facility]) atorvastatin 80 MG Oral Tablet ATORVASTATIN CALCIUM 01/25/2020 1 2:00:00 AM EDT tablet 30 TAKE ONE TABLET BY MOUTH AT BEDT BARB TAKE ONE TABLET BY MOUTH AT BEDTIME SOLD: 01/25/2020 [facility] Chlorthalidone 25 MG Oral Tablet Chlorthalidone 01/25/2020 12:00:00 A M EDT active [facility] ([facility]) Meclizine Hydrochloride 25 MG Oral Tablet Meclizine HCL 01/24/2020 12:00:00 AM EDT ORAL active [facility] ([facility]) Levothyroxine Sodium 0.15 MG Oral Tablet Levothyroxine Sodiu m 01/24/2020 12:00:00 AM EDT ORAL active M EDENT ([facility]) 300 mg 01/17/2020 12:00:00 AM [...] type / Coverage type Policy ID Covered constitution party ID Covered constitution party's relationship to urena Policy Urena Plan Information [facility] [id number] SP [id number] [facility] Workers Compensation [id number] Self [id number] [facility]) Workers Compensation [id number] Self [id number] [facility]) Workers Compensation [id number] Self [id number] [facility]) Workers Compensation [id number] Self [id number] [facility]) Workers Compensation [id number] Self [id number] [facility]) Workers Compensation [id number] Self [id number] [facility] Workers Compensation [id number] Self [id number] [facility] Workers Compensation [id number] Self [id number] [facility] [id number] SP [id number] [facility] [id number] SP [id number] BS [facility] DIV [id number] SP [id number] [facility] Workers Compensation [id number] Self [id number] [facility] Workers Compensation [id number] Self [id number] [facility] Workers Compensation [id number] Self [id number] [facility] Workers Compensation [id number] Self [id number] [employer] [id number] Florinda YLS [id number] STATE INSURANCE FUND O [id number] S [id number] STATE INSUR[employer] FUND O [id number] S [id number] STATE INSURANCE FUND O [id number] S [id number] STATE INSURANCE FUND [id number] SP [id number] STATE INSURANCE FUND O [id number] O [id number] [facility] O [id number] S [id number] [facility] Health Maintenance Organization (HMO) [id number] Self [id number] [facility] [id number] SP [id number] [employer] COMM [id number] S [id number] [facility] [id number] SP [id number] Problems, Conditions, and Diagnoses Code Display Name Description Problem Type Effective Dates Data Source(s) I11.9 Hypertensive heart disease without heart failure Hypertensive heart disease without heart Diagnosis 01/29/2020 12:06:00 PM EDT [facility] R06.02 Shortness of breath Shortness of breath Diagnosis 1 12:06:[address] [facility] R07.2 Precordial pain Precordial pain Diagnosis 01/29/2020 12:0 6:[address] [facility] [id number] Hemorrhage of rectum and anus Hemorrhage of rectum and anus Problem 06/12/2020 12:00:00 AM EST [facility] ([facility]) I35.1 Aortic valve disorder Aortic valve disorder Problem 05/20/2020 12:00:00 AM EST MED[facility] ([facility]) R07.2 Precordial pain Precordial pain Problem 01/25/2020 12:0 0:00 AM EDT MED[facility] ([facility]) I11.9 Benign hypertensive heart disease withou t congestive heart failure Benign hypertensive heart disease without congestive heart failure Problem 01/25/2020 12:00:00 AM EDT MED[facility] ([facility]) I71.2 Aneurysm of thoracic aorta Aneurysm of thoracic aorta Problem 01/25/2020 12:00:00 AM EDT [facility] ([facility]) G47.33 Obstructive sleep apnea syndrome Obstructive sle ep apnea syndrome Problem 01/25/2020 12:00:00 AM EDT [facility] ([facility]) I34.0 Mitral valve disorder Mitral valve disorder Problem 01/25/2020 12:00:00 AM EDT MED[facility] ([facility]) R94.31 Electrocardiogram abnormal Electrocardiogram abnormal Problem 01/25/2020 12:00:00 AM EDT MED[facility] ([facility]) R06.02 Dyspnea Dyspnea Problem 01/25/2020 12:00:00 AM ED T MED[facility] ([facility]) Surgeries/Procedures Procedure Description Date Indications Data Source(s) OFFICE OUTPATIENT VISIT 15 MINUTES 11/12/2020 12:00:00 AM EDT MED[facility] ([facility], ) ECG ROUTINE ECG W/LEAST 12 LDS W/I&R 10/08/2020 12:00: 00 AM EDT MED[facility] ([facility]) COLSC FLX PROX SPLENIC FLXR RMVL LES SNARE TQ 06/26/19 12:00:00 AM EST [facility] ([facility]) ECHO TTHRC R-T 2D W/WOM-MODE COMPL SPEC&COLR DOP 04/22 12:00:00 AM EST MED[facility] ([facility]) Left Heart Cath W/Wo LV & Coronary Angiography 020 12:00:00 AM EDT MED[facility] ([facility]) ECG ROUTINE ECG W/LEAST 12 LDS W/I&R 01/25/2020 12:00: 00 AM EDT MED[facility] ([facility]) CV STRS TST XERS&/OR RX CONT ECG PHYS SI&R 01/25/2020 12:00:00 AM EDT [facility] ([facility]) Results ID Date Data Source [id number] 02/16/2021 12:00:00 AM EDT [facility] Name Value Range Interpretation Code Description Data Carolin rce(s) Supporting Document(s) PCR NEGATIVE [facility] This lab was ordered by [facility] are and reported by [facility]. ID Date Data Source [id number] 10/06/2020 11:43:00 AM EDT [facility] ([facility]) Name Value Range Interpretation Code Description Data Carolin rce(s) Supporting Document(s) Natriuretic peptide.B prohormone N-Terminal [Mass/volu me] in Serum or Plasma 33 pg/mL [facility] ([facility]) ID Date Data Source [id number] 08/26/2020 11:09:00 AM EDT [facility] ([facility]) Name Value Range Interpretation Code Description Data Carolin rce(s) Supporting Document(s) White Blood Count 5.1 4.0-10.0 [facility] Red Blood Count 4.87 4.30-6.10 [facility] ([facility]) Platelets 206 150-450 [facility] Hematocrit 44.3 [facility] ([facility]) Hemoglobin 14.6 [facility] ([facility]) ID Date Data Source [id number] 08/26/2020 11:09:00 AM EDT [facility] ([facility]) Name Value Range Interpretation Code Description Data Carolin rce(s) Supporting Document(s) Hemoglobin A1c/Hemoglobin.total in Blood 5.6 [facility] ([facility]) ID Date Data Source [id number] 08/26/2020 11:09:00 AM EDT [facility] ([facility]) Name Value Range Interpretation Code Description Data Carolin rce(s) Supporting Document(s) Thyroid Stimulating Hormone 5.610 ME DENT ([facility]) ID Date Data Source [id number] 08/26/2020 11:09:00 AM EDT [facility] ([facility]) Name Value Range Interpretation Code Description Data Carolin rce(s) Supporting Document(s) Cholesterol 165 [facility] ([facility]) Triglycerides 131 [facility] ([facility]) Cholesterol in LDL [Mass/volume] in Serum or Plasma by calculation 93 [facility] ([facility]) HDL 46 [facility] ([facility]) Chol/HDL Ratio 3.586 [facility] ([facility]iol [facility]) ID Date Data Source [id number] 08/26/2020 11:09:00 AM EDT [facility] ([facility]) Name Value Range Interpretation Code Description Data Carolin rce(s) Supporting Document(s) Alanine aminotransferase [Enzymatic activity/volume] in Serum or Pl asma 36 [facility] ([facility]) Calcium [Mass/volume] in Serum or Plasma 9.5 [facility] ([facility]) Albumin [Mass/volume] in Serum or Plasma 3.9 [facility] ([facility]) Carbon dioxide, total [Moles/volume] in Serum or Plasma 31 [facility] ([facility]) Alkaline phosphatase [Enzymatic activity/volume] in Serum or Plasma 7 3 [facility] ([facility]) Chloride [Moles/volume] in Serum or Plasma 107 [facility] ([facility]) Protein [Mass/volume] in Serum or Plasma 7.0 [facility] ([facility]) Potassium [Moles/volume] in Serum or Plasma 4.3 [facility] ([facility]) Sodium 142 [facility] Urea nitrogen [Mass/volume] in Serum or Plasma 13 [facility] ([facility]) Aspartate aminotransferase [Enzymatic activity/volume] in Serum or Plasma 23 [facility] ([facility]) Glucose 94 70-100 [facility] ([facility]) Creatinine For GFR 1.13 [facility] ([facility]oly [facility]) ID Date Data Source [id number] 06/25/2020 10:50:00 AM EST MED[facility] ([facility]) Name Value Range Interpretation Code Description Data Carolin rce(s) Supporting Document(s) Surgical pathology study Laboratory test result MED[facility] ([facility]) FINAL DIAGNOSIS A - Splenic flexure, polyp, [...] MD 06/26/2020 1423 ID Date Data Source [id number] 06/20/2020 11:30:00 AM EST [facility] Name Value Range Interpretation Code Description Data Carolin rce(s) Supporting Document(s) SARS coronavirus 2 RNA Not Detected [facility] This lab was ordered by [facility] and reported by [facility]. ID Date Data Source [id number] 02/08/2020 08:43:00 AM EDT MED[facility] ([facility]) Name Value Range Interpretation Code Description Data Carolin rce(s) Supporting Document(s) Magnesium [Mass/volume] in Serum or Plasma 2.2 mg/dL 1.8-2.4 [facility] ([facility]) Natriuretic peptide.B prohormone N-Terminal [Mass/volu me] in Serum or Plasma 27 pg/mL [facility] ([facility]) ID Date Data Source [id number] 02/08/2020 08:43:00 AM EDT [facility] ([facility]) Name Value Range Interpretation Code Description Data Carolin rce(s) Supporting Document(s) Glucose, Fasting 100 mg/dL 70-100 [facility] ([facility]) Creatinine For GFR 1.30 mg/dL 0.70-1.30 MEDENT ([facility]iology [facility]) Blood Urea Nitrogen 18 mg/dL 7-18 [facility] ([facility]) Glomerular Filtration Rate Laboratory test result MEDENT ([facility]iology [facility]) <content>Units are mL/min/1.73 m2</content>
<content></content>
<content>Chronic Kidney Disease Staging per NKF:</content>
<content></content>
<content>Stage I & II GFR >=60 Normal to Mildly Decreased</content>
<content>Stage III GFR 30- 59 Moderately Decreased</content>
<content>Stage IV GFR 15-29 Severely Decreased</content>
<content>Stage V GFR <15 Very Little GFR Left</content>
<content>ESRD GFR <15 on RADIAGRAPH OPERATOR</content>
<content></content> Potassium Serum 4.0 meq/L 3.5-5.1 [facility] ([facility]) Sodium Level 139 meq/L 136-145 [facility] ([facility]) Anion Gap 6 meq/L 8-16 [facility] Carbon Dioxide Level 26 meq/L 21-32 [facility] ([facility]) Chloride Level 107 meq/L 98-107 [facility] ([facility]iol [facility]) Albumin 4.1 GM/DL 3.2-5.2 [facility] [place] Phosphorus Level 3.1 mg/dL 2.5-4.9 [facility] ([facility] [place] Calcium Level 9.4 mg/dL 8.5-10.1 [facility] ([facility] ID Date Data Source [id number] 01/29/2020 02:12:[address] [facility] Name Value Range Interpretation Code Description Data Carolin rce(s) Supporting Document(s) &PDF [facility] [id number]/CQFhfMWIni4TcFAfdFTg6SLquEMTyN3WlmIhoOCPVUhGPPKeOGP4kUyKgPUVi waW [file] 9zGDcBBy8MmyjYoPZGB9gYBM7k4nFftHwbe8dQnw55QGIVN8hY0GfOCw3RWmHNsDnPwX+senior care/iT5INDd [file] [id number]== ID Date Data Source [id number] 01/29/2020 12:46:[address] [facility] Name Value Range Interpretation Code Description Data Carolin rce(s) Supporting Document(s) EKG [facility] TNNLIz1zTdCPDvUdk1TvLvYjSVYnKY9wwfq2V7L9xYMfS4OdsGMyr8zzO8NqH7KfGDZpPRFJGR7TyRGz jb2 [file] [id number]+3NSz1i7OUScD7g12kq26rrC5i3Nfa lKCuCe843akY648qUE/u03bvH1PCq/2BJEgKnTcndeYtkVLbWW9EKK6ef0AeOpM5AITlw6DqVGfnVXd5 sSTnYMpirdZkx1VhrlnpZ6Qrz3JmOjMgVNGxCpHuUil1AYCpYkU1iWQlZiQbBVIdN3YfGPFdByD3WuLn BJNAQM1BZHNdhpIcKgEfRLI+GqRrCZ6aepmhKUMyy1 OlVTtlTNtsDHRcC9J5xObxJAHtB8TcfX34AIGaM9RefxR9IEE7PIYbNbLiXHGirGVsFCTkKUF+PmVuZG 4ymspjUNStw7AbQYckTAE5cN3zUMoJKBVVHDwPKLgnBdT8u46cisYNKCNpUHKfUP2NiyGssDsurbQspN HlPAQ1GvIaADUvPENqVlB8XOYFVWAxOMZmNXIdIEQf P8ZzyMhnHDkUFRNJKIpCPNarXkPbb1A7UPGrguGZEGBHSQUzLPFPOFNjEEO6LDI3NowjVX5LqUJzLPY8 HFiFDZBFBHgQXAklArPfg0X1WDGuZ2ZqAVIywkPzANYNQQppZhylEG5oyGvoixzaU3TxwOPaOHIRTGAy ZIXuVLAdMBCjO7Xlb4Q5E0YwOBjXBUPMJPyRFDqeVy O4e91shhDPUTOuMWKpGX6+VX5pi9UuOo0SCIBqSL6jhsc6ZJ7AcIWuMC4JVCzfulBwK5adrwWlJyDpTO NLRA9zZ3AyqI87QTO+AvDaOD1kvxc3qgHiVhElKVNyZEFvDUChQKkiUJPtSBPtHTItDMH9CJY2TWStDk KuMTUcJUJ2SUthDXGbRYPpmwAXQGCoXYV9GoL1BXKe RGNpHYSoTIveFLWjVDNwQHWsXTCpGJEqNP4sVwOtGNKmBPOwWFXoFrH1IvFgLhPGYVDpYMCpOEKuOuFs EUIoICKeXUunXHLmWCDjTZy4JVTpNIYzUQ4wMmFeACWdIYNzRXKvRKVqRTVmgsNYSLNaBBTkOSZ4JLCd HIToVHXqXHikPWBsONWkXRK2HWYkHDKyXD9nNoQmLO XhOUN4CdDiCRHjDGBivjGZKEJaHQQqSOL8XPGaRIFzOZZsTFsrEOHoYUNaHgN9UJKkUAXmIV2sGlQbTT QfECZ1RUVfQONgHHKaydGEKBVcPJDcLVb2GtMxAKDsRHLpDSmxJHGuDCEyWFbcDBJwOWOzUF4xVuXtEO PiOJWqNLWzADAkTSKlrsFPWTZpJKIfFFX2UbYlXSIc ELMsRTpzLHDsHXOtNAJ7BGKrPTJiPD7yAbXnWPSdDNWlZuVtATQjGDCbwiKPZHUePLQgCWMuQSQcMZKv VIEcHFiwOMZxISCyFcZ0RSPwFZBjIF6qVdNdHYXnKER9EHYgVWTxJVOaulFTPUUnJCAaVTZdERP5MYUe XMLeAYm0loPhbTAtMzr7It1YzDfyGIP9Mh8YdlOgZU QyIXYAHm6Vn178KISxRAEFRru+RvdmlVNhfJtkTUTFHLT5WpMJLKYEZ6S= ID Date Data Source [id number] 01/29/2020 12:31:54 PM [address] [facility] NT INFORMATIONPatient MRN Name Date of Age Gend*PT [id number] Pratibha Sloan 1970 49 years M HOPPT Location Admission Date/Time Visit ID Attending Provider01/29/20 1206 --- Kecia Elam MD([id number]) EPI ID CSN Admitting Provider [id number] Kecia Elam MD([id number])Updated H&PPlease see the scanned/dictated outpatient note.I have reviewed the note, clinical history and physical exam findings. Therehave been no significant changes.Plan as outlined in the outpatient note.Risk/benifit/alternative of cardiac catheterization was discussed withpatient/family. Risks included, but not limited to; ID, CVA, , renalimpairment, vascular complication, and need for emergency surgery were discussedand accepted by patient.Kecia Elam MD, [facility] Senior Product Development Manager Name Value Range Interpretation Code Description Data Carolin rce(s) Supporting Document(s) ID Date Data Source [id number] 01/25/2020 02:12:00 PM EDT [facility] ([facility]) Name Value Range Interpretation Code Description Data Carolin rce(s) Supporting Document(s) Glucose, Fasting 91 mg/dL 70-100 [facility] Creatinine For GFR 1.20 mg/dL 0.70-1.30 [facility] Blood Urea Nitrogen 16 mg/dL 7-18 [facility] ([facility]) Glomerular Filtration Rate Laboratory test result [facility] ([facility]) <content>Units are mL/min/1.73 m2</content>
<content></content>
<content>Chronic Kidney Disease Staging per NKF:</content>
<content></content>
<content>Stage I & II GFR >=60 Normal to Mildly Decreased</content>
<content>Stage III GFR 30- 59 Moderately Decreased</content>
<content>Stage IV GFR 15-29 Severely Decreased</content>
<content>Stage V GFR <15 Very Little GFR Left</content>
<content>ESRD GFR <15 on RADIAGRAPH OPERATOR</content>
<content></content> Sodium Level 138 meq/L 136-145 [facility] ([facility]) Potassium Serum 4.2 meq/L 3.5-5.1 [facility] ([facility]io [facility]) Carbon Dioxide Level 27 meq/L 21-32 [facility] ([facility]) Chloride Level 105 meq/L 98-107 [facility] ([facility]iol [facility]gy [facility]) Phosphorus Level 3.2 mg/dL 2.5-4.9 [facility] ([facility]i [facility]y [facility]) Calcium Level 9.4 mg/dL 8.5-10.1 [facility] ([facility]) Anion Gap 6 meq/L 8-16 [facility] ([facility] A [facility]) Albumin 4.2 GM/DL 3.2-5.2 [facility] ID Date Data Source [id number] 01/25/2020 02:12:00 PM EDT [facility] ([facility]) Name Value Range Interpretation Code Description Data Carolin rce(s) Supporting Document(s) Prothrombin Time 13.1 s 12.5-14.3 [facility] ([facility]) Inr 0.97 [facility] THERAPUTIC HUMAN INR VALUES INDICATIONS NORMAL RANGES PROPHYLAXIS/TREATMENT OF: VENOUS THROMBOSIS 2.0-3.0 PULMONARY EMBOLISM 2.0-3.0 PREVENTION OF SYSTEMIC EMBOLISM FROM: TISSUE HEART VALVES 2.0-3.0 ACUTE MYOCARDIAL INFARCTION 2.0-3.0 VALVULAR HEART DISEASE 2.0-3.0 ATRIAL FIBRILLATION 2.0-3.0 MECHANICAL VALVES(HIGH RISK) 2.5-3.5 RECURRENT MYOCARDIAL INFARCTION 2.5-3.5 ID Date Data Source [id number] 01/25/2020 02:12:00 PM EDT [facility]) Name Value Range Interpretation Code Description Data Carolin rce(s) Supporting Document(s) Hemoglobin 14.0 g/dL 13.5-17.5 [facility] Red Blood Count 4.75 10 4.30-6.10 [facility] ([facility]) White Blood Count 6.1 10 4.0-10.0 [facility]) Mean Corpuscular Volume 88.0 fl 80.0-96.0 [facility]) Hematocrit 41.8 % 42.0-52.0 [facility] (Card[facility]) Mean Corpuscular HGB Conc 33.5 g/dL 32.0-36.5 [facility] (Cardiology [facility]) Mean Corpuscular Hemoglobin 29.5 pg 27.0-33.0 [facility] (Card[facility]) Red Cell Distribution Width 13.6 % 11.5-14.5 [facility] (Card[facility]) Platelet Count, Automated 198 10 150-450 [facility] (Card[facility]) Nucleated Red Blood Cell % 0.0 % 0-0 [facility] (Cardiology [facility]) Procedure Social History Code Duration Value Status Description Data Source(s ) Smoking 11/12/2020 12:00:00 AM EDT Patient is a former smoker completed Patient is a former smoker [facility] ([facility], ) Smoking 01/25/2020 12:00:00 AM EDT Patient is a former smoker completed Patient is a former smoker [facility] Vital Signs ID Date Data Source UNK Name Value Range Interpretation Code Description Data Source(s) Systolic blood pressure 120 mm[Hg] 120 mm[Hg] M [facility] ([facility], ) Diastolic blood pressure 80 mm[Hg] 80 mm[Hg] [facility] ([facility], ) Heart rate 80 /min 80 /min [facility] ([facility], ) Oxygen saturation in Arterial blood by Pulse oximetry 97 % 97 % [facility] Body height 73.5 [in_i] 73.5 [in_i] [facility] ([facility]) 6'1.50" Body weight 308.00 [lb_av] 308.00 [lb_av] [facility] ([facility]) Body mass index (BMI) [Ratio] 40.1 kg/m2 40.1 k g/m2 [facility] ([facility]) [place] body weight 184 [lb_av] 184 [lb_av] [facility] ([facility]) Body weight 139.709 kg 139.709 kg [facility] ([facility]) Body surface area Derived from formula 2.60 m2 2.60 m2 [facility] ([facility]) Body weight 301.00 [lb_av] 301.00 [lb_av] [facility] ([facility]) Body height 75 [in_i] 75 [in_i] [facility] ([facility]) 6'3" Body mass index (BMI) [Ratio] 37.6 kg/m2 37.6 k g/m2 [facility] ([facility]) Heart rate 76 /min 76 /min [facility] ([facility]) regular Respiratory rate 16 /min 16 /min [facility] ( [facility]) Systolic blood pressure--sitting 122 mm[Hg] 122 mm[Hg] [facility] ([facility]) large cuff, Ra Diastolic blood pressure--sitting 78 mm[Hg] 78 mm[Hg] [facility] ([facility]) large cuff, Ra Systolic blood pressure--supine 121 mm[Hg] 121 mm[Hg] [facility] ([facility]) Diastolic blood pressure--supine 80 mm[Hg] 80 mm[Hg] [facility] ([facility]) Body height 74 [in_i] 74 [in_i] [facility] ([facility]) 6'2" Body weight 304.00 [lb_av] 304.00 [lb_av] [facility] ([facility]) Systolic blood pressure 126 mm[Hg] 126 mm[Hg] [...] 16 /min [facility] ( [facility]) Systolic blood pressure--sitting 116 mm[Hg] 116 mm[Hg] [facility] ([facility]) large cuff, Ra Diastolic blood pressure--sitting 82 mm[Hg] 82 mm[Hg] [facility] ([facility]) large cuff, Ra Systolic blood pressure--supine 124 mm[Hg] 124 mm[Hg] [facility] ([facility]) Diastolic blood pressure--supine 84 mm[Hg] 84 mm[Hg] [facility] ([facility]) Body weight 300.00 [lb_av] 300.00 [lb_av] [facility] ([facility]) Body height 75 [in_i] 75 [in_i] [facility] ([facility]) 6'3" Body mass index (BMI) [Ratio] 37.5 kg/m2 37.5 k g/m2 [facility] ([facility]) Heart rate 64 /min 64 /min [facility] ([facility]) regular Diastolic blood pressure--sitting 76 mm[Hg] 76 mm[Hg] [facility] ([facility]) large cuff, Ra Body weight 289.00 [lb_av] 289.00 [lb_av] [facility] ([facility]) Body height 75 [in_i] 75 [in_i] [facility] ([facility]) 6'3" Body mass index (BMI) [Ratio] 36.1 kg/m2 36.1 k g/m2 [facility] ([facility]) Heart rate 72 /min 72 /min [facility] ([facility]) regular Respiratory rate 16 /min 16 /min [facility] ( [facility]) Systolic blood pressure--sitting 116 mm[Hg] 116 mm[Hg] [facility] ([facility]) large cuff, Ra Systolic blood pressure--supine 114 mm[Hg] 114 mm[Hg] [facility] ([facility]) Diastolic blood pressure--supine 75 mm[Hg] 75 mm[Hg] [facility] ([facility]) Diastolic blood pressure--sitting 86 mm[Hg] 86 mm[Hg] [facility] ([facility]) large cuff, Ra - 136/88 1 min later; 139 /88 [place] Diastolic blood pressure--supine 88 mm[Hg] 88 mm[Hg] [facility] ([facility]) Ra Systolic blood pressure--supine 142 mm[Hg] 142 mm[Hg] [facility] ([facility]) Ra Body mass index (BMI) [Ratio] 36.7 kg/m2 36.7 k g/m2 [facility] ([facility]) Heart rate 68 /min 68 /min [facility] ([facility]) regular Respiratory rate 16 /min 16 /min [facility] ( [facility]) Body weight 294.00 [lb_av] 294.00 [lb_av] [facility] T ([facility]) Body height 75 [in_i] 75 [in_i] [facility] ([facility]) 6'3" Systolic blood pressure--sitting 129 mm[Hg] 129 mm[Hg] [facility] ([facility]) large cuff, Ra - 136/88 1 min later; 139 /88 [place] Oxygen saturation in Arterial blood by Pulse oximetry 96 % 96 % [facility] ([facility]) Oxygen saturation in Arterial blood by Pulse oximetry --post exerci se 96 % 96 % [facility] ([facility])
[2021-02-23] MEDS ORDERED: ERYTHROMYCIN OPHTH OINT OS ONE (00:35)
[2021-02-23] MEDS ORDERED: OFLOXACIN 0.3 % (OCUFLOX) OPTH SOL 5ML OS SCH (00:35)
[2021-02-23] MEDS ORDERED: DOXYCYCLINE HYCLATE 100MG TABLET PO ONE (00:35)
[2021-02-23] MEDS ORDERED: DOXY-350 PO (00:47)
[2021-02-23] MEDS ORDERED: ERYT5OIN25 OP (00:47)
[2021-02-23] MEDS ORDERED: OCUF0.25 OS (00:47)
[2021-02-23 01:10] VITALS: BP 138/85
== END 2021-02-23 01:15 | disposition home or self-care (01) ==
LOC: M ED 20:48
DX: H10.32 Unspecified acute conjunctivitis, left eye (principal); Z77.21 Contact with and (suspected) exposure to potentially hazardous body fluids; Y92.9 Unspecified place or not applicable; Y93.9 Activity, unspecified; Y99.0 Civilian activity done for income or pay; I71.4 Abdominal aortic aneurysm, without rupture; Z79.899 Other long term (current) drug therapy

== ENCOUNTER → 2021-04-08 | Outpatient (CLI) | payer BC, OTHER ==
[~2021-04-08] MED LIST changes: +DOXY-350 PO; +ERYT5OIN25 OP; +OCUF0.25 OS
[2021-04-08 10:53] LABS: ALBUMIN 3.7 GM/DL (3.2-5.2); ALT/SGPT 34 U/L (12-78); BILIRUBIN,TOTAL 0.7 MG/DL (0.2-1.0); BLOOD UREA NITROGEN 19 MG/DL (7-18); CALCIUM LEVEL 9.1 MG/DL (8.5-10.1); CARBON DIOXIDE LEVEL 27 MEQ/L (21-32); CHLORIDE LEVEL 109 MEQ/L (98-107); CREATININE FOR GFR 1.12 MG/DL (0.70-1.30); GLOMERULAR FILTRATION RATE > 60.0 (>56); GLUCOSE, FASTING 109 MG/DL (70-100); NT-PRO BNP 17 PG/ML (<125); POTASSIUM SERUM 4.2 MEQ/L (3.5-5.1); SODIUM LEVEL 141 MEQ/L (136-145); TOTAL PROTEIN 7.2 GM/DL (6.4-8.2)
== END ==
LOC: M LAB 09:42
PROVIDERS: ATTEND Internal Medicine Cardiovascular Disease
DX: I11.9 Hypertensive heart disease without heart failure (principal)

== ENCOUNTER → 2021-04-08 | Outpatient (CLI) | payer BC, OTHER ==
[2021-04-08 10:24] LABS: HEMATOCRIT 42.2 % (42.0-52.0); MEAN CORPUSCULAR HEMOGLOBIN 29.2 pg (27.0-33.0); MEAN CORPUSCULAR HGB CONC 33.2 g/dl (32.0-36.5); MEAN CORPUSCULAR VOLUME 87.9 fl (80.0-96.0); PLATELET COUNT, AUTOMATED 209 10^3/uL (150-450); WHITE BLOOD COUNT 5.6 10^3/uL (4.0-10.0)
[2021-04-08 11:04] LABS: CHOLESTEROL RISK RATIO 3.387 (<5); THYROID STIMULATING HORMONE 1.49 uIU/ML (0.358-3.740)
[2021-04-08 11:05] LABS: TOTAL 25(OH) VITAMIN D 21.5 NG/ML (30.0-100.0)
== END ==
LOC: M LAB 09:37
PROVIDERS: ATTEND Family Medicine
DX: D64.9 Anemia, unspecified (principal)

== ENCOUNTER → 2021-09-22 | Outpatient (CLI) | payer BC, OTHER ==
[~2021-09-22] MED LIST changes: -OMEP-221; +OMEP40CA5
[2021-09-22 08:08] LABS: HEMOGLOBIN 14.3 g/dl (13.5-17.5); MEAN CORPUSCULAR HEMOGLOBIN 29.2 pg (27.0-33.0); MEAN CORPUSCULAR HGB CONC 32.5 g/dl (32.0-36.5); MEAN CORPUSCULAR VOLUME 89.8 fl (80.0-96.0); PLATELET COUNT, AUTOMATED 211 10^3/uL (150-450); WHITE BLOOD COUNT 5.8 10^3/uL (4.0-10.0)
[2021-09-22 08:42] LABS: ALBUMIN 3.8 GM/DL (3.2-5.2); ALT/SGPT 33 U/L (12-78); BILIRUBIN,TOTAL 0.5 MG/DL (0.2-1.0); BLOOD UREA NITROGEN 20 MG/DL (7-18); CALCIUM LEVEL 9.5 MG/DL (8.5-10.1); CARBON DIOXIDE LEVEL 29 MEQ/L (21-32); CHLORIDE LEVEL 110 MEQ/L (98-107); CHOLESTEROL LEVEL 187 MG/DL (<200); CREATININE FOR GFR 1.22 MG/DL (0.70-1.30); GLOMERULAR FILTRATION RATE > 60.0 (>56); GLUCOSE, FASTING 105 MG/DL (70-100); HDL CHOLESTEROL 41 MG/DL (>40); LDL CHOLESTEROL 121 MG/DL (<100); NON-HDL-C 146 MG/DL; POTASSIUM SERUM 4.2 MEQ/L (3.5-5.1); SODIUM LEVEL 143 MEQ/L (136-145); TOTAL PROTEIN 7.1 GM/DL (6.4-8.2); TRIGLYCERIDES LEVEL 124 MG/DL (<150)
[2021-09-22 09:45] LABS: TESTOSTERONE 299 NG/DL (241-827)
[2021-09-22 10:08] LABS: HEMOGLOBIN A1c 5.7 %
== END ==
LOC: M LAB 07:29
PROVIDERS: ATTEND Family Medicine
DX: I10 Essential (primary) hypertension (principal)

== ENCOUNTER → 2021-10-28 | Outpatient (CLI) | payer BC, OTHER | LOC: M LAB 07:03 | PROVIDERS: ATTEND Family Medicine | DX: E11.9 Type 2 diabetes mellitus without complications (principal) ==

== ENCOUNTER → 2022-01-15 | Outpatient (CLI) | payer BC, OTHER ==
[2022-01-15 08:30] LABS: HEMATOCRIT 44.7 % (42.0-52.0); HEMOGLOBIN 14.7 g/dl (13.5-17.5); MEAN CORPUSCULAR HEMOGLOBIN 29.6 pg (27.0-33.0); MEAN CORPUSCULAR HGB CONC 32.9 g/dl (32.0-36.5); MEAN CORPUSCULAR VOLUME 90.1 fl (80.0-96.0); PLATELET COUNT, AUTOMATED 209 10^3/uL (150-450); RED BLOOD COUNT 4.96 10^6/uL (4.30-6.10); WHITE BLOOD COUNT 6.2 10^3/uL (4.0-10.0)
[2022-01-15 09:04] LABS: HEMOGLOBIN A1c 5.6 %
[2022-01-15 09:28] LABS: ALBUMIN 4.2 GM/DL (3.2-5.2); ALT/SGPT 27 U/L (12-78); BILIRUBIN,TOTAL 0.7 MG/DL (0.2-1.0); BLOOD UREA NITROGEN 16 MG/DL (7-18); CALCIUM LEVEL 9.4 MG/DL (8.5-10.1); CARBON DIOXIDE LEVEL 29 MEQ/L (21-32); CHLORIDE LEVEL 109 MEQ/L (98-107); CHOLESTEROL LEVEL 126 MG/DL (<200); CHOLESTEROL RISK RATIO 2.571 (<5); CREATININE FOR GFR 1.18 MG/DL (0.70-1.30); GLOMERULAR FILTRATION RATE > 60.0 (>56); GLUCOSE, FASTING 108 MG/DL (70-100); HDL CHOLESTEROL 49 MG/DL (>40); LDL CHOLESTEROL 62 MG/DL (<100); NON-HDL-C 77 MG/DL; POTASSIUM SERUM 4.4 MEQ/L (3.5-5.1); PROSTATIC SPECIFIC AG MONITOR 0.74 NG/ML (< 4.00); SODIUM LEVEL 143 MEQ/L (136-145); TOTAL PROTEIN 7.2 GM/DL (6.4-8.2); TRIGLYCERIDES LEVEL 76 MG/DL (<150)
[2022-01-15 10:16] LABS: TESTOSTERONE 382 NG/DL (241-827)
== END ==
LOC: M LAB 07:30
PROVIDERS: ATTEND Family Medicine
DX: D64.9 Anemia, unspecified (principal); R53.83 Other fatigue

== ENCOUNTER → 2023-04-11 | Outpatient (CLI) | payer BC, OTHER ==
[~2023-04-11] MED LIST changes: -DOXY-350 PO; +DOXY-444 PO
== END ==
LOC: M RAD 12:08
PROVIDERS: ATTEND Family Medicine
DX: K11.9 Disease of salivary gland, unspecified (principal); R59.0 Localized enlarged lymph nodes

== ENCOUNTER → 2023-04-12 | Outpatient (CLI) | payer BC, OTHER ==
[2023-04-12 11:27] LABS: HEMATOCRIT 42.5 % (42.0-52.0); MEAN CORPUSCULAR HEMOGLOBIN 29.5 pg (27.0-33.0); MEAN CORPUSCULAR HGB CONC 32.9 g/dl (32.0-36.5); MEAN CORPUSCULAR VOLUME 89.5 fl (80.0-96.0); PLATELET COUNT, AUTOMATED 294 10^3/uL (150-450); RED BLOOD COUNT 4.75 10^6/uL (4.30-6.10)
[2023-04-12 11:44] LABS: PROSTATIC SPECIFIC AG MONITOR 1.26 NG/ML (< 4.00)
[2023-04-12 11:45] LABS: HEMOGLOBIN A1c 5.7 % (4.0-6.0)
[2023-04-12 11:47] LABS: ALBUMIN 3.4 G/DL (3.2-5.2); ALKALINE PHOSPHATASE 56 U/L (46-116); ALT/SGPT 28 U/L (7.0-40); AST/SGOT 11 U/L (<34); BILIRUBIN,TOTAL 0.5 MG/DL (0.3-1.2); BLOOD UREA NITROGEN 22 MG/DL (9-23); CALCIUM LEVEL 9.3 MG/DL (8.5-10.1); CARBON DIOXIDE LEVEL 27 MMOL/L (20-31); CHLORIDE LEVEL 108 MMOL/L (98-107); CHOLESTEROL LEVEL 175 MG/DL (<200); CHOLESTEROL RISK RATIO 4.06 (<5); CREATININE FOR GFR 1.06 MG/DL (0.70-1.30); GLOMERULAR FILTRATION RATE > 60.0 (>56); GLUCOSE, FASTING 97 MG/DL (60-100); HDL CHOLESTEROL 43.1 MG/DL (>40); LDL CHOLESTEROL 114.5 MG/DL (<100); NON-HDL-C 131.9 MG/DL; POTASSIUM SERUM 4.2 MMOL/L (3.5-5.1); SODIUM LEVEL 142 MMOL/L (136-145); TOTAL PROTEIN 6.9 G/DL (5.7-8.2); TRIGLYCERIDES LEVEL 87 MG/DL (<150)
[2023-04-12 11:48] LABS: TOTAL 25(OH) VITAMIN D 20.2 NG/ML (20.0-100.0)
[2023-04-12 11:49] LABS: TESTOSTERONE 235 NG/DL (241-827); THYROID STIMULATING HORMONE 2.258 uIU/ML (0.55-4.78)
[2023-04-12 11:57] LABS: MONO SCRN NEGATIVE (NEGATIVE)
[2023-04-12 12:34] LABS: ERYTHROCYTE SEDIMENTATION RATE 63 mm/hr (0-20)
== END ==
LOC: M RAD 09:08
PROVIDERS: ATTEND Family Medicine
DX: D64.9 Anemia, unspecified (principal); R53.83 Other fatigue

== ENCOUNTER → 2023-11-23 | Outpatient (REF) | payer BC, OTHER ==
[~2023-11-23] MED LIST changes: +DOXY-440 PO; -DOXY-444 PO
[2023-11-23 12:54] LABS: HEMATOCRIT 45.6 % (42.0-52.0); MEAN CORPUSCULAR HEMOGLOBIN 29.9 pg (27.0-33.0); MEAN CORPUSCULAR HGB CONC 32.9 g/dl (32.0-36.5); PLATELET COUNT, AUTOMATED 187 10^3/uL (150-450); RED BLOOD COUNT 5.01 10^6/uL (4.30-6.10); WHITE BLOOD COUNT 5.8 10^3/uL (4.0-10.0)
[2023-11-23 12:55] LABS: PSA SCREENING 0.94 NG/ML (< 4.00)
[2023-11-23 12:56] LABS: ALBUMIN 3.9 G/DL (3.2-5.2); ALKALINE PHOSPHATASE 64 U/L (46-116); ALT/SGPT 26 U/L (7.0-40); AST/SGOT 13 U/L (<34); BILIRUBIN,TOTAL 0.8 MG/DL (0.3-1.2); BLOOD UREA NITROGEN 15 MG/DL (9-23); CALCIUM LEVEL 9.2 MG/DL (8.5-10.1); CARBON DIOXIDE LEVEL 27 MMOL/L (20-31); CHLORIDE LEVEL 109 MMOL/L (98-107); CHOLESTEROL LEVEL 198 MG/DL (<200); CHOLESTEROL RISK RATIO 4.96 (<5); CREATININE FOR GFR 1.13 MG/DL (0.70-1.30); GLOMERULAR FILTRATION RATE > 60.0 (>56); GLUCOSE, FASTING 100 MG/DL (60-100); HDL CHOLESTEROL 39.9 MG/DL (>40); LDL CHOLESTEROL 138.7 MG/DL (<100); NON-HDL-C 158.1 MG/DL; POTASSIUM SERUM 4.4 MMOL/L (3.5-5.1); SODIUM LEVEL 142 MMOL/L (136-145); TOTAL PROTEIN 6.6 G/DL (5.7-8.2); TRIGLYCERIDES LEVEL 97 MG/DL (<150)
[2023-11-23 12:59] LABS: TESTOSTERONE 246 NG/DL (241-827); THYROID STIMULATING HORMONE 6.648 uIU/ML (0.55-4.78)
== END ==
LOC: M LABDRAWP 12:24
PROVIDERS: ATTEND Family Medicine
DX: R53.83 Other fatigue (principal); I10 Essential (primary) hypertension

== ENCOUNTER → 2024-01-06 | Outpatient (CLI) | payer BC | LOC: M RAD 06:59 | PROVIDERS: ATTEND Family Medicine | DX: R19.06 Epigastric swelling, mass or lump (principal); K76.0 Fatty (change of) liver, not elsewhere classified; R16.1 Splenomegaly, not elsewhere classified ==

== ENCOUNTER → 2024-05-04 | Outpatient (CLI) | payer BC ==
[2024-05-04 09:56] LABS: HEMOGLOBIN 15.5 g/dl (13.5-17.5); MEAN CORPUSCULAR HEMOGLOBIN 29.8 pg (27.0-33.0); MEAN CORPUSCULAR VOLUME 90.2 fl (80.0-96.0); PLATELET COUNT, AUTOMATED 192 10^3/uL (150-450); RED BLOOD COUNT 5.21 10^6/uL (4.30-6.10); WHITE BLOOD COUNT 6.9 10^3/uL (4.0-10.0)
[2024-05-04 10:19] LABS: PROSTATIC SPECIFIC AG MONITOR 0.97 NG/ML (< 4.00)
[2024-05-04 10:21] LABS: ALBUMIN 4.1 G/DL (3.2-5.2); ALKALINE PHOSPHATASE 55 U/L (40-129); ALT/SGPT 25 U/L (7.0-40); AST/SGOT 15 U/L (<34); BILIRUBIN,TOTAL 0.8 MG/DL (0.3-1.2); BLOOD UREA NITROGEN 17 MG/DL (9-23); CALCIUM LEVEL 9.1 MG/DL (8.5-10.1); CARBON DIOXIDE LEVEL 31 MMOL/L (20-31); CHLORIDE LEVEL 109 MMOL/L (98-107); CHOLESTEROL LEVEL 212 MG/DL (<200); CHOLESTEROL RISK RATIO 5.23 (<5); CREATININE FOR GFR 1.13 MG/DL (0.70-1.30); GLOMERULAR FILTRATION RATE > 60.0 (>56); GLUCOSE, FASTING 101 MG/DL (60-100); HDL CHOLESTEROL 40.5 MG/DL (>40); LDL CHOLESTEROL 146.1 MG/DL (<100); NON-HDL-C 171.5 MG/DL; POTASSIUM SERUM 4.4 MMOL/L (3.5-5.1); SODIUM LEVEL 141 MMOL/L (136-145); TOTAL PROTEIN 7.1 G/DL (5.7-8.2); TRIGLYCERIDES LEVEL 127 MG/DL (<150)
[2024-05-04 10:23] LABS: TESTOSTERONE 880 NG/DL (241-827); THYROID STIMULATING HORMONE 2.017 uIU/ML (0.55-4.78)
[2024-05-04 10:25] LABS: HEMOGLOBIN A1c 5.5 % (4.0-6.0)
== END ==
LOC: M RAD 09:11
PROVIDERS: ATTEND Family Medicine
DX: R53.83 Other fatigue (principal)

== ENCOUNTER → 2024-05-29 | Outpatient (CLI) | payer BC | LOC: M CARPUL 12:57 | PROVIDERS: ATTEND Physician Assistant | DX: I71.20 Thoracic aortic aneurysm, without rupture, unspecified (principal) ==

== ENCOUNTER → 2024-08-07 | Outpatient (CLI) | payer BC | LOC: M CARPUL 08:11 | PROVIDERS: ATTEND Physician Assistant | DX: R94.31 Abnormal electrocardiogram [ECG] [EKG] (principal); R07.9 Chest pain, unspecified; R06.02 Shortness of breath ==

== ENCOUNTER → 2024-12-27 | Outpatient (REF) | payer OTHER ==
[2024-12-27 14:51] LABS: BASO # 0.0 10^3/uL (0.0-0.2); BASO % 0.4 % (0.0-1.0); EOS # 0.1 10^3/uL (0.0-0.5); EOS % 1.3 % (0.0-3.0); LYMPH # 2.1 10^3/uL (1.5-5.0); LYMPH % 30.6 % (24.0-44.0); MONO # 0.5 10^3/uL (0.0-0.8); MONO % 6.7 % (2.0-8.0); NEUTROPHILS # 4.2 10^3/uL (1.5-8.5); NEUTROPHILS % 60.7 % (36.0-66.0); PLATELET COUNT, AUTOMATED 207 10^3/uL (150-450)
[2024-12-27 15:02] LABS: ERYTHROCYTE SEDIMENTATION RATE 12 mm/hr (0-20)
[2024-12-27 15:26] LABS: TOTAL 25(OH) VITAMIN D 28.9 NG/ML (20.0-100.0)
[2024-12-27 15:28] LABS: ALT/SGPT 28.0 U/L (7.0-40); AST/SGOT 20.0 U/L (<34); CALCIUM LEVEL 9.4 MG/DL (8.5-10.1); CARBON DIOXIDE LEVEL 27.0 MMOL/L (20-31); CHLORIDE LEVEL 106.0 MMOL/L (98-107); CHOLESTEROL LEVEL 218.0 MG/DL (<200); CHOLESTEROL RISK RATIO 4.24 (<5); CREATININE FOR GFR 1.1 MG/DL (0.70-1.30); GLOMERULAR FILTRATION RATE 79.8 (>56); LDL CHOLESTEROL 134.6 MG/DL (<100); NON-HDL-C 166.6 MG/DL; POTASSIUM SERUM 4.3 MMOL/L (3.5-5.1); SODIUM LEVEL 145.0 MMOL/L (136-145); TRIGLYCERIDES LEVEL 160.0 MG/DL (<150)
[2024-12-27 15:29] LABS: FREE T4 1.43 NG/DL (0.89-1.76)
[2024-12-27 15:49] LABS: ESTIMATED AVERAGE GLUCOSE 114.0 MG/DL (60-110)
== END ==
LOC: M SFHCADAM 07:42
PROVIDERS: ATTEND Physician Assistant Medical
DX: K75.81 Nonalcoholic steatohepatitis (NASH) (principal); I71.21 Aneurysm of the ascending aorta, without rupture; E66.01 Morbid (severe) obesity due to excess calories; E29.1 Testicular hypofunction; G47.33 Obstructive sleep apnea (adult) (pediatric); Z86.73 Personal history of transient ischemic attack (TIA), and cerebral infarction without residual deficits

== ENCOUNTER → 2025-03-04 | Outpatient (CLI) | payer BC | LOC: M LABDRWAD 13:03 → M ADAMS 13:03 | PROVIDERS: ATTEND Physician Assistant Medical | DX: M25.532 Pain in left wrist (principal) ==

== ENCOUNTER → 2025-03-04 | Outpatient (REF) | payer BC, OTHER ==
[2025-03-04 19:20] LABS: C REACTIVE PROTEIN QUANTITATIV < 0.50 MG/DL (<1.0); RHEUMATOID FACTOR QUANT < 3.5 IU/ML (<14)
[2025-03-04 19:23] LABS: FREE T4 1.36 NG/DL (0.89-1.76)
[2025-03-08 10:43] LABS: DRVV SCREEN 32.0 SECONDS
[2025-03-08 10:44] LABS: PTT LUPUS TYPE ANTICOAG SCREEN 0.82 (0-1.20)
[2025-03-08 20:13] LABS: LYME TOTAL ANTIBODY CIA <= 0.90 Index (<=0.90)
== END ==
LOC: M SFHCADAM 11:56
PROVIDERS: ATTEND Physician Assistant Medical
DX: M25.50 Pain in unspecified joint (principal)

== ENCOUNTER → 2025-04-09 | Outpatient (CLI) | payer BC | LOC: M WHC 06:47 | PROVIDERS: ATTEND Physician Assistant Medical | DX: K75.81 Nonalcoholic steatohepatitis (NASH) (principal) ==